=== PATIENT | female | born 1975 | race Caucasian/White ===

== ENCOUNTER 2020-12-09 13:50 | Inpatient (IN) ==
[2020-12-09] MEDS ORDERED: Aspirin 81 MG TAB.CHEW PO ONE (14:12)
[2020-12-09] MEDS ORDERED: 0.9 % Sodium Chloride 1,000 ML IVC SCH (14:15)
[2020-12-09 14:43] LABS: Basophils % 0.1 %; Eosinophils % 0.1 %; Hematocrit 25.8 % (35.3-44.9); Hemoglobin 8.1 g/dL (11.5-15.4); Immature Granulocytes % 0.4 % (0-4); Lymphocytes # 1.1 K/mcL (0.6-4.6); Lymphocytes % 13.7 %; Mean Corpuscular HGB Conc 31.4 g/dL (31.6-35.5); Mean Corpuscular Hemoglobin 29.3 pg (28.0-33.3); Mean Corpuscular Volume 93.5 fL (83.0-100.0); Monocytes # 0.8 K/mcL (0.0-1.3); Monocytes % 9.3 %; Neutrophils # 6.3 K/mcL (1.6-8.9); Platelet Count 215 K/mcL (140-400); Red Blood Count 2.76 M/mcL (3.82-4.97); Red Cell Distribution Width 15.9 % (11.5-14.5); Segmented Neutrophils % 76.4 %; White Blood Count 8.2 K/mcL (4.3-11.1)
[2020-12-09 14:52] LABS: INR 1.2; Prothrombin Time 13.9 Seconds (9.4-12.1)
[2020-12-09 14:55] LABS: Activated Partial Thrombo Time 37.4 Seconds (26.0-36.0)
[2020-12-09 14:59] LABS: BUN/Creatinine Ratio 25 (6-26); Blood Urea Nitrogen 62 mg/dL (6-20); Calcium 8.8 mg/dL (8.6-10.3); Carbon Dioxide 27 mEq/L (23-29); Chloride 100 mEq/L (98-107); Glucose 147 mg/dL (70-105); Osmolality,Calculated 306 (280-300); Potassium 4.6 mEq/L (3.5-5.1); Sodium 138 mEq/L (136-145); eGFR For African Americans 26 (> 60); eGFR For Non-African Americans 21 (> 60)
[2020-12-09 15:03] LABS: Troponin I < 0.03 ng/mL (< 0.04)
[2020-12-09] MEDS ORDERED: Acetaminophen 325 MG TABLET PO PRN (16:27)
[2020-12-09] MEDS ORDERED: Naloxone 0.4 MG/ML INJ IVP PRN (16:27)
[2020-12-09] MEDS ORDERED: Ondansetron 4 MG/2 ML VIAL IVP PRN (16:27)
[2020-12-09] MEDS ORDERED: Ipratropium/Albuterol Neb 3 ML IH PRN (16:30)
[2020-12-09] MEDS ORDERED: *HR* Dextrose 50 % in Water (Vial) 50 ML VIAL IVP PRN (16:31)
[2020-12-09] MEDS ORDERED: D5% in Water 1,000 ML IVC PRN (16:31)
[2020-12-09] MEDS ORDERED: Dextrose Gel 15 GM/37.5 ML TUBE PO PRN ×2 (16:31)
[2020-12-09] MEDS ORDERED: *HR* Rivaroxaban 15 MG TABLET PO SCH (17:04)
[2020-12-09] MEDS: Doxycycline 100 MG in 0.9 % Sodium Chloride Mini Bag 100 ML IVPB SCH (19:49)
[2020-12-09] MEDS: Furosemide 40 MG/4 ML VIAL IVP SCH (20:28)
[2020-12-09] MEDS: Fluticasone Propionate Nasal 50 MCG/SPRAY BOTTLE NS SCH (20:33)
[2020-12-09] MEDS: Insulin DETEMIR 100 UNIT/ML X5UNITS SUBQ SCH (20:34)
[2020-12-09] MEDS ORDERED: Apixaban 5 MG TABLET PO SCH (21:00)
[2020-12-09] MEDS ORDERED: Metoprolol 100 MG TABLET PO SCH (21:00)
[2020-12-09] MEDS ORDERED: Perflutren Lipid Microsphere 1.3 ML in 0.9 % Sodium Chloride 8.7 ML IVP PRN (21:05)
[2020-12-09 21:10] LABS: Estimated Average Glucose 128 mg/dl; Hemoglobin A1C 6.1 %
[2020-12-10 01:42] LABS: Hematocrit 22.1 % (35.3-44.9); Hemoglobin 6.8 g/dL (11.5-15.4)
[2020-12-10 01:43] LABS: Hematocrit 21.9 % (35.3-44.9); Hemoglobin 6.9 g/dL (11.5-15.4); Mean Corpuscular HGB Conc 31.5 g/dL (31.6-35.5); Mean Corpuscular Volume 95.2 fL (83.0-100.0); Mean Platelet Volume 11.2 fL (9.4-12.4); Platelet Count 186 K/mcL (140-400); White Blood Count 5.6 K/mcL (4.3-11.1)
[2020-12-10 02:03] LABS: Calcium 8.1 mg/dL (8.6-10.3); Chol/HDL Ratio 4.9 (0-4.9); Magnesium 1.2 mg/dL (1.6-2.6); Potassium 4.3 mEq/L (3.5-5.1)
[2020-12-10] MEDS ORDERED: 0.9 % Sodium Chloride 250 ML IVC SCH (02:15)
[2020-12-10] MEDS: Insulin LISPRO 300 UNITS/3 ML VIAL SUBQ SCH ×3 (08:30→17:46)
[2020-12-10] MEDS: Furosemide 40 MG/4 ML VIAL IVP SCH (08:31)
[2020-12-10] MEDS: Fluticasone Propionate Nasal 50 MCG/SPRAY BOTTLE NS SCH ×2 (08:37→22:33)
[2020-12-10] MEDS: Doxycycline 100 MG in 0.9 % Sodium Chloride Mini Bag 100 ML IVPB SCH (08:37)
[2020-12-10] MEDS: Insulin DETEMIR 100 UNIT/ML X5UNITS SUBQ SCH ×2 (08:38→22:50)
[2020-12-10 08:51] LABS: Hematocrit 24.8 % (35.3-44.9); Hemoglobin 7.9 g/dL (11.5-15.4); Mean Corpuscular HGB Conc 31.9 g/dL (31.6-35.5); Mean Corpuscular Hemoglobin 29.7 pg (28.0-33.3); Mean Corpuscular Volume 93.2 fL (83.0-100.0); Mean Platelet Volume 11.4 fL (9.4-12.4); Platelet Count 199 K/mcL (140-400); Red Blood Count 2.66 M/mcL (3.82-4.97); Red Cell Distribution Width 16.7 % (11.5-14.5); White Blood Count 5.7 K/mcL (4.3-11.1)
[2020-12-10] MEDS ORDERED: Aspirin Enteric Coated 81 MG Tablet PO SCH (09:00)
[2020-12-10] MEDS ORDERED: Cholecalciferol (D-3) 1,000 UNIT (25MCG) TABLET PO SCH (09:00)
[2020-12-10] MEDS ORDERED: ARIPiprazole 5 MG TABLET PO SCH (09:00)
[2020-12-10] MEDS ORDERED: 0.9 % Sodium Chloride 500 ML IVC ONE (10:02)
[2020-12-10] MEDS ORDERED: 0.9 % Sodium Chloride 1,000 ML IVC SCH (10:15)
[2020-12-10 15:57] VITALS: RESP 18
[2020-12-10 18:45] VITALS: O2SAT 100
[2020-12-10 19:33] LABS: Hematocrit 25.3 % (35.3-44.9); Hemoglobin 8.1 g/dL (11.5-15.4)
[2020-12-10] MEDS ORDERED: Doxycycline 100 MG in 0.9 % Sodium Chloride Mini Bag 100 ML IVPB SCH (21:00)
[2020-12-10 22:46] VITALS: PULSE 106; TEMP 98.3
[2020-12-10 22:48] VITALS: BP 87/56
[2020-12-24] MEDS ORDERED: ARIPIPRAZOLE 400 MG IM SCH (09:00)
== END 2020-12-10 23:25 | disposition short-term general hospital (02) | DRG 291 ==
LOC: EMEROOPIK 13:50 → INPPIK 18:38
PROVIDERS: ADMIT Family Medicine; ATTEND Family Medicine

== ENCOUNTER 2020-12-17 11:57 | Inpatient (IN) ==
[2020-12-18] MEDS ORDERED: Dextrose Gel 15 GM/37.5 ML TUBE PO PRN ×2 (14:20)
[2020-12-18] MEDS ORDERED: D5% in Water 1,000 ML IVC PRN (14:20)
[2020-12-18] MEDS ORDERED: *HR* Dextrose 50 % in Water (Vial) 50 ML VIAL IVP PRN (14:20)
[2020-12-18] MEDS: Doxycycline 100 MG CAPSULE PO SCH (16:51)
[2020-12-18] MEDS: *HR* Glimepiride 4 MG TABLET PO SCH (16:51)
[2020-12-18] MEDS: Insulin LISPRO 300 UNITS/3 ML VIAL SUBQ SCH ×2 (16:52→22:37)
[2020-12-18] MEDS: Latanoprost 2.5 ML BOTTLE BOTH EYES SCH (22:23)
[2020-12-18] MEDS: Fluticasone Propionate Nasal 50 MCG/SPRAY BOTTLE NS SCH (22:23)
[2020-12-18] MEDS: Divalproex (12 HR) 250 MG TABLET PO SCH (22:24)
[2020-12-19] MEDS: Doxycycline 100 MG CAPSULE PO SCH ×2 (06:26→16:18)
[2020-12-19 07:22] LABS: Basophils % 0.3 %; Eosinophils # 0.2 K/mcL (0.0-0.6); Eosinophils % 3.4 %; Hematocrit 29.5 % (35.3-44.9); Hemoglobin 9.6 g/dL (11.5-15.4); Immature Granulocytes % 0.4 % (0-4); Lymphocytes # 1.9 K/mcL (0.6-4.6); Lymphocytes % 27.3 %; Mean Corpuscular HGB Conc 32.5 g/dL (31.6-35.5); Mean Corpuscular Hemoglobin 29.6 pg (28.0-33.3); Mean Platelet Volume 10.4 fL (9.4-12.4); Monocytes # 0.7 K/mcL (0.0-1.3); Monocytes % 10.4 %; Neutrophils # 4.1 K/mcL (1.6-8.9); Platelet Count 249 K/mcL (140-400); Red Blood Count 3.24 M/mcL (3.82-4.97); Red Cell Distribution Width 14.5 % (11.5-14.5); Segmented Neutrophils % 58.2 %; White Blood Count 7.1 K/mcL (4.3-11.1)
[2020-12-19 07:39] LABS: Calcium 8.9 mg/dL (8.6-10.3); Potassium 3.6 mEq/L (3.5-5.1)
[2020-12-19] MEDS: Insulin DETEMIR 100 UNIT/ML X5UNITS SUBQ SCH (08:22)
[2020-12-19] MEDS: Divalproex (12 HR) 250 MG TABLET PO SCH ×2 (08:22→21:51)
[2020-12-19] MEDS: Furosemide 20 MG TABLET PO SCH (08:23)
[2020-12-19] MEDS: Cholecalciferol (D-3) 1,000 UNIT (25MCG) TABLET PO SCH (08:23)
[2020-12-19] MEDS: ARIPiprazole 5 MG TABLET PO SCH (08:23)
[2020-12-19] MEDS: *HR* Glimepiride 4 MG TABLET PO SCH ×2 (08:23→16:18)
[2020-12-19] MEDS: Insulin LISPRO 300 UNITS/3 ML VIAL SUBQ SCH ×4 (08:24→21:52)
[2020-12-19] MEDS: *HR* SitaGLIPtin 100 MG TABLET PO SCH (08:24)
[2020-12-19] MEDS: Fluticasone Propionate Nasal 50 MCG/SPRAY BOTTLE NS SCH ×2 (08:34→21:51)
[2020-12-19] MEDS: Latanoprost 2.5 ML BOTTLE BOTH EYES SCH (21:51)
[2020-12-20] MEDS: Doxycycline 100 MG CAPSULE PO SCH ×2 (06:51→17:01)
[2020-12-20] MEDS: Insulin DETEMIR 100 UNIT/ML X5UNITS SUBQ SCH (09:42)
[2020-12-20] MEDS: Furosemide 20 MG TABLET PO SCH (09:43)
[2020-12-20] MEDS: *HR* Glimepiride 4 MG TABLET PO SCH ×2 (09:43→17:01)
[2020-12-20] MEDS: *HR* SitaGLIPtin 100 MG TABLET PO SCH (09:43)
[2020-12-20] MEDS: ARIPiprazole 5 MG TABLET PO SCH (09:43)
[2020-12-20] MEDS: Cholecalciferol (D-3) 1,000 UNIT (25MCG) TABLET PO SCH (09:43)
[2020-12-20] MEDS: Divalproex (12 HR) 250 MG TABLET PO SCH ×2 (09:43→22:44)
[2020-12-20] MEDS: Fluticasone Propionate Nasal 50 MCG/SPRAY BOTTLE NS SCH ×2 (09:47→22:50)
[2020-12-20] MEDS: Insulin LISPRO 300 UNITS/3 ML VIAL SUBQ SCH ×4 (09:48→22:51)
[2020-12-20] MEDS: Latanoprost 2.5 ML BOTTLE BOTH EYES SCH (22:50)
[2020-12-21] MEDS: Insulin DETEMIR 100 UNIT/ML X5UNITS SUBQ SCH (08:32)
[2020-12-21] MEDS: Insulin LISPRO 300 UNITS/3 ML VIAL SUBQ SCH ×4 (08:32→22:19)
[2020-12-21] MEDS: ARIPiprazole 5 MG TABLET PO SCH (08:33)
[2020-12-21] MEDS: Furosemide 20 MG TABLET PO SCH (08:33)
[2020-12-21] MEDS: Divalproex (12 HR) 250 MG TABLET PO SCH ×2 (08:33→22:19)
[2020-12-21] MEDS: *HR* Glimepiride 4 MG TABLET PO SCH ×2 (08:33→17:49)
[2020-12-21] MEDS: Cholecalciferol (D-3) 1,000 UNIT (25MCG) TABLET PO SCH (08:33)
[2020-12-21] MEDS: Fluticasone Propionate Nasal 50 MCG/SPRAY BOTTLE NS SCH ×2 (08:33→22:24)
[2020-12-21] MEDS: *HR* SitaGLIPtin 100 MG TABLET PO SCH (08:33)
[2020-12-21] MEDS: Latanoprost 2.5 ML BOTTLE BOTH EYES SCH (22:24)
[2020-12-22] MEDS: *HR* SitaGLIPtin 100 MG TABLET PO SCH (08:37)
[2020-12-22] MEDS: Insulin LISPRO 300 UNITS/3 ML VIAL SUBQ SCH ×4 (08:37→21:04)
[2020-12-22] MEDS: ARIPiprazole 5 MG TABLET PO SCH (08:37)
[2020-12-22] MEDS: Cholecalciferol (D-3) 1,000 UNIT (25MCG) TABLET PO SCH (08:38)
[2020-12-22] MEDS: Divalproex (12 HR) 250 MG TABLET PO SCH ×2 (08:38→21:03)
[2020-12-22] MEDS: Fluticasone Propionate Nasal 50 MCG/SPRAY BOTTLE NS SCH ×2 (08:38→21:03)
[2020-12-22] MEDS: *HR* Glimepiride 4 MG TABLET PO SCH ×2 (08:38→17:08)
[2020-12-22] MEDS: Furosemide 20 MG TABLET PO SCH (08:38)
[2020-12-22] MEDS: Insulin DETEMIR 100 UNIT/ML X5UNITS SUBQ SCH (08:39)
[2020-12-22] MEDS: Latanoprost 2.5 ML BOTTLE BOTH EYES SCH (21:03)
[2020-12-23] MEDS: *HR* Glimepiride 4 MG TABLET PO SCH ×2 (08:21→17:03)
[2020-12-23] MEDS: *HR* SitaGLIPtin 100 MG TABLET PO SCH (08:22)
[2020-12-23] MEDS: Cholecalciferol (D-3) 1,000 UNIT (25MCG) TABLET PO SCH (08:22)
[2020-12-23] MEDS: ARIPiprazole 5 MG TABLET PO SCH (08:23)
[2020-12-23] MEDS: Divalproex (12 HR) 250 MG TABLET PO SCH ×2 (08:23→20:08)
[2020-12-23] MEDS: Furosemide 20 MG TABLET PO SCH (08:24)
[2020-12-23] MEDS: Fluticasone Propionate Nasal 50 MCG/SPRAY BOTTLE NS SCH ×2 (08:37→20:09)
[2020-12-23] MEDS: Insulin LISPRO 300 UNITS/3 ML VIAL SUBQ SCH ×4 (08:38→20:09)
[2020-12-23] MEDS: Insulin DETEMIR 100 UNIT/ML X5UNITS SUBQ SCH (09:44)
[2020-12-23] MEDS: Sennosides/Docusate Sodium TABLET PO SCH ×2 (11:32→20:09)
[2020-12-23] MEDS: Latanoprost 2.5 ML BOTTLE BOTH EYES SCH (20:09)
[2020-12-24] MEDS: *HR* SitaGLIPtin 100 MG TABLET PO SCH (08:37)
[2020-12-24] MEDS: Fluticasone Propionate Nasal 50 MCG/SPRAY BOTTLE NS SCH ×2 (08:37→21:04)
[2020-12-24] MEDS: Divalproex (12 HR) 250 MG TABLET PO SCH ×2 (08:37→20:58)
[2020-12-24] MEDS: Sennosides/Docusate Sodium TABLET PO SCH ×2 (08:38→20:57)
[2020-12-24] MEDS: Cholecalciferol (D-3) 1,000 UNIT (25MCG) TABLET PO SCH (08:38)
[2020-12-24] MEDS: *HR* Glimepiride 4 MG TABLET PO SCH ×2 (08:38→16:52)
[2020-12-24] MEDS: Furosemide 20 MG TABLET PO SCH (08:38)
[2020-12-24] MEDS: ARIPiprazole 5 MG TABLET PO SCH (08:39)
[2020-12-24] MEDS: Insulin LISPRO 300 UNITS/3 ML VIAL SUBQ SCH ×4 (08:42→20:58)
[2020-12-24] MEDS: Insulin DETEMIR 100 UNIT/ML X5UNITS SUBQ SCH (08:44)
[2020-12-24] MEDS: Latanoprost 2.5 ML BOTTLE BOTH EYES SCH (20:58)
[2020-12-25] MEDS: ARIPiprazole 5 MG TABLET PO SCH (07:57)
[2020-12-25] MEDS: *HR* Glimepiride 4 MG TABLET PO SCH ×2 (07:57→15:52)
[2020-12-25] MEDS: Cholecalciferol (D-3) 1,000 UNIT (25MCG) TABLET PO SCH (07:57)
[2020-12-25] MEDS: Furosemide 20 MG TABLET PO SCH (07:57)
[2020-12-25] MEDS: Divalproex (12 HR) 250 MG TABLET PO SCH ×2 (07:57→21:10)
[2020-12-25] MEDS: Fluticasone Propionate Nasal 50 MCG/SPRAY BOTTLE NS SCH ×2 (07:57→21:11)
[2020-12-25] MEDS: Sennosides/Docusate Sodium TABLET PO SCH ×2 (07:58→21:10)
[2020-12-25] MEDS: *HR* SitaGLIPtin 100 MG TABLET PO SCH (07:58)
[2020-12-25] MEDS: Insulin LISPRO 300 UNITS/3 ML VIAL SUBQ SCH ×4 (07:59→21:11)
[2020-12-25] MEDS: Insulin DETEMIR 100 UNIT/ML X5UNITS SUBQ SCH (09:25)
[2020-12-25] MEDS: Latanoprost 2.5 ML BOTTLE BOTH EYES SCH (21:10)
[2020-12-26] MEDS: Insulin LISPRO 300 UNITS/3 ML VIAL SUBQ SCH ×4 (07:24→20:50)
[2020-12-26] MEDS: Sennosides/Docusate Sodium TABLET PO SCH ×2 (07:29→20:48)
[2020-12-26] MEDS: Cholecalciferol (D-3) 1,000 UNIT (25MCG) TABLET PO SCH (07:35)
[2020-12-26] MEDS: Furosemide 20 MG TABLET PO SCH (07:35)
[2020-12-26] MEDS: ARIPiprazole 5 MG TABLET PO SCH (07:35)
[2020-12-26] MEDS: *HR* SitaGLIPtin 100 MG TABLET PO SCH (07:35)
[2020-12-26] MEDS: *HR* Glimepiride 4 MG TABLET PO SCH ×2 (07:36→16:33)
[2020-12-26] MEDS: Divalproex (12 HR) 250 MG TABLET PO SCH ×2 (07:36→20:47)
[2020-12-26] MEDS: Fluticasone Propionate Nasal 50 MCG/SPRAY BOTTLE NS SCH ×2 (07:42→20:49)
[2020-12-26] MEDS: Insulin DETEMIR 100 UNIT/ML X5UNITS SUBQ SCH (09:21)
[2020-12-26] MEDS: Latanoprost 2.5 ML BOTTLE BOTH EYES SCH (20:49)
[2020-12-27] MEDS: Insulin LISPRO 300 UNITS/3 ML VIAL SUBQ SCH ×4 (07:28→20:39)
[2020-12-27] MEDS: ARIPiprazole 5 MG TABLET PO SCH (07:47)
[2020-12-27] MEDS: *HR* Glimepiride 4 MG TABLET PO SCH ×2 (07:47→18:46)
[2020-12-27] MEDS: Sennosides/Docusate Sodium TABLET PO SCH ×2 (07:47→20:51)
[2020-12-27] MEDS: *HR* SitaGLIPtin 100 MG TABLET PO SCH (07:48)
[2020-12-27] MEDS: Cholecalciferol (D-3) 1,000 UNIT (25MCG) TABLET PO SCH (07:48)
[2020-12-27] MEDS: Divalproex (12 HR) 250 MG TABLET PO SCH ×2 (07:48→20:48)
[2020-12-27] MEDS: Furosemide 20 MG TABLET PO SCH (07:48)
[2020-12-27] MEDS: Fluticasone Propionate Nasal 50 MCG/SPRAY BOTTLE NS SCH ×2 (07:50→20:50)
[2020-12-27] MEDS: Insulin DETEMIR 100 UNIT/ML X5UNITS SUBQ SCH (08:08)
[2020-12-27] MEDS: Latanoprost 2.5 ML BOTTLE BOTH EYES SCH (20:54)
[2020-12-28] MEDS: Cholecalciferol (D-3) 1,000 UNIT (25MCG) TABLET PO SCH (07:53)
[2020-12-28] MEDS: Divalproex (12 HR) 250 MG TABLET PO SCH ×2 (07:53→20:33)
[2020-12-28] MEDS: ARIPiprazole 5 MG TABLET PO SCH (07:53)
[2020-12-28] MEDS: *HR* SitaGLIPtin 100 MG TABLET PO SCH (07:53)
[2020-12-28] MEDS: Sennosides/Docusate Sodium TABLET PO SCH ×2 (07:53→20:37)
[2020-12-28] MEDS: Fluticasone Propionate Nasal 50 MCG/SPRAY BOTTLE NS SCH ×2 (07:54→20:34)
[2020-12-28] MEDS: Insulin LISPRO 300 UNITS/3 ML VIAL SUBQ SCH ×4 (07:54→20:38)
[2020-12-28] MEDS: *HR* Glimepiride 4 MG TABLET PO SCH ×2 (07:54→17:26)
[2020-12-28] MEDS: Furosemide 20 MG TABLET PO SCH (07:54)
[2020-12-28] MEDS: Insulin DETEMIR 100 UNIT/ML X5UNITS SUBQ SCH (08:38)
[2020-12-28] MEDS: Latanoprost 2.5 ML BOTTLE BOTH EYES SCH (20:36)
[2020-12-29] MEDS: Furosemide 20 MG TABLET PO SCH (08:01)
[2020-12-29] MEDS: ARIPiprazole 5 MG TABLET PO SCH (08:01)
[2020-12-29] MEDS: *HR* Glimepiride 4 MG TABLET PO SCH ×2 (08:01→16:39)
[2020-12-29] MEDS: Cholecalciferol (D-3) 1,000 UNIT (25MCG) TABLET PO SCH (08:01)
[2020-12-29] MEDS: Fluticasone Propionate Nasal 50 MCG/SPRAY BOTTLE NS SCH ×2 (08:01→19:52)
[2020-12-29] MEDS: Insulin LISPRO 300 UNITS/3 ML VIAL SUBQ SCH ×4 (08:02→19:52)
[2020-12-29] MEDS: *HR* SitaGLIPtin 100 MG TABLET PO SCH (08:02)
[2020-12-29] MEDS: Sennosides/Docusate Sodium TABLET PO SCH ×2 (08:02→19:48)
[2020-12-29] MEDS: Divalproex (12 HR) 250 MG TABLET PO SCH ×2 (08:02→19:48)
[2020-12-29] MEDS: Insulin DETEMIR 100 UNIT/ML X5UNITS SUBQ SCH (08:23)
[2020-12-29] MEDS: Latanoprost 2.5 ML BOTTLE BOTH EYES SCH (19:47)
[2020-12-30 09:07] LABS: Basophils % 0.3 %; Eosinophils # 0.2 K/mcL (0.0-0.6); Hematocrit 28.1 % (35.3-44.9); Hemoglobin 8.8 g/dL (11.5-15.4); Immature Granulocytes % 0.6 % (0-4); Lymphocytes # 1.8 K/mcL (0.6-4.6); Lymphocytes % 26.4 %; Mean Corpuscular HGB Conc 31.3 g/dL (31.6-35.5); Mean Corpuscular Volume 92.7 fL (83.0-100.0); Monocytes # 0.8 K/mcL (0.0-1.3); Monocytes % 11.1 %; Nucleated Red Blood Cells 0.3 /100 WBC (0); Platelet Count 268 K/mcL (140-400); Red Blood Count 3.03 M/mcL (3.82-4.97); Segmented Neutrophils % 58.6 %; White Blood Count 6.7 K/mcL (4.3-11.1)
[2020-12-30 09:37] LABS: BUN/Creatinine Ratio 15 (6-26); Blood Urea Nitrogen 17 mg/dL (6-20); Carbon Dioxide 30 mEq/L (23-29); Chloride 105 mEq/L (98-107); Glucose 95 mg/dL (70-105); Osmolality,Calculated 299 (280-300); Potassium 3.7 mEq/L (3.5-5.1); Sodium 144 mEq/L (136-145); eGFR For African Americans > 60 (> 60); eGFR For Non-African Americans 51 (> 60)
[2020-12-30] MEDS: Cholecalciferol (D-3) 1,000 UNIT (25MCG) TABLET PO SCH (10:18)
[2020-12-30] MEDS: ARIPiprazole 5 MG TABLET PO SCH (10:18)
[2020-12-30] MEDS: Furosemide 20 MG TABLET PO SCH (10:18)
[2020-12-30] MEDS: Sennosides/Docusate Sodium TABLET PO SCH ×2 (10:20→21:53)
[2020-12-30] MEDS: Divalproex (12 HR) 250 MG TABLET PO SCH ×2 (10:20→21:53)
[2020-12-30] MEDS: *HR* Glimepiride 4 MG TABLET PO SCH ×2 (10:20→16:07)
[2020-12-30] MEDS: Insulin DETEMIR 100 UNIT/ML X5UNITS SUBQ SCH (10:21)
[2020-12-30] MEDS: Insulin LISPRO 300 UNITS/3 ML VIAL SUBQ SCH ×4 (10:21→21:58)
[2020-12-30] MEDS: Fluticasone Propionate Nasal 50 MCG/SPRAY BOTTLE NS SCH ×2 (10:23→22:04)
[2020-12-30] MEDS: *HR* SitaGLIPtin 100 MG TABLET PO SCH (10:24)
[2020-12-30] MEDS: Latanoprost 2.5 ML BOTTLE BOTH EYES SCH (21:59)
[2020-12-31] MEDS: ARIPiprazole 5 MG TABLET PO SCH (08:01)
[2020-12-31] MEDS: *HR* Glimepiride 4 MG TABLET PO SCH ×2 (08:01→16:41)
[2020-12-31] MEDS: Divalproex (12 HR) 250 MG TABLET PO SCH ×2 (08:01→20:44)
[2020-12-31] MEDS: *HR* SitaGLIPtin 100 MG TABLET PO SCH (08:01)
[2020-12-31] MEDS: Furosemide 20 MG TABLET PO SCH (08:01)
[2020-12-31] MEDS: Sennosides/Docusate Sodium TABLET PO SCH ×2 (08:02→20:44)
[2020-12-31] MEDS: Cholecalciferol (D-3) 1,000 UNIT (25MCG) TABLET PO SCH (08:03)
[2020-12-31] MEDS: Fluticasone Propionate Nasal 50 MCG/SPRAY BOTTLE NS SCH ×2 (08:03→20:52)
[2020-12-31] MEDS: Insulin DETEMIR 100 UNIT/ML X5UNITS SUBQ SCH (08:08)
[2020-12-31] MEDS: Insulin LISPRO 300 UNITS/3 ML VIAL SUBQ SCH ×4 (08:11→22:22)
[2020-12-31] MEDS: Latanoprost 2.5 ML BOTTLE BOTH EYES SCH (20:53)
[2021-01-01] MEDS: Divalproex (12 HR) 250 MG TABLET PO SCH ×2 (08:49→21:39)
[2021-01-01] MEDS: Cholecalciferol (D-3) 1,000 UNIT (25MCG) TABLET PO SCH (08:49)
[2021-01-01] MEDS: *HR* Glimepiride 4 MG TABLET PO SCH ×2 (08:49→16:39)
[2021-01-01] MEDS: ARIPiprazole 5 MG TABLET PO SCH (08:50)
[2021-01-01] MEDS: Sennosides/Docusate Sodium TABLET PO SCH ×2 (08:50→21:39)
[2021-01-01] MEDS: Furosemide 20 MG TABLET PO SCH (08:50)
[2021-01-01] MEDS: Fluticasone Propionate Nasal 50 MCG/SPRAY BOTTLE NS SCH ×2 (08:50→21:40)
[2021-01-01] MEDS: *HR* SitaGLIPtin 100 MG TABLET PO SCH (08:50)
[2021-01-01] MEDS: Insulin LISPRO 300 UNITS/3 ML VIAL SUBQ SCH ×4 (08:56→21:41)
[2021-01-01] MEDS: Insulin DETEMIR 100 UNIT/ML X5UNITS SUBQ SCH (09:03)
[2021-01-01] MEDS: Latanoprost 2.5 ML BOTTLE BOTH EYES SCH (21:40)
[2021-01-02] MEDS: *HR* SitaGLIPtin 100 MG TABLET PO SCH (09:13)
[2021-01-02] MEDS: Fluticasone Propionate Nasal 50 MCG/SPRAY BOTTLE NS SCH ×2 (09:13→21:35)
[2021-01-02] MEDS: Divalproex (12 HR) 250 MG TABLET PO SCH ×2 (09:14→21:33)
[2021-01-02] MEDS: Cholecalciferol (D-3) 1,000 UNIT (25MCG) TABLET PO SCH (09:14)
[2021-01-02] MEDS: Furosemide 20 MG TABLET PO SCH (09:14)
[2021-01-02] MEDS: ARIPiprazole 5 MG TABLET PO SCH (09:14)
[2021-01-02] MEDS: *HR* Glimepiride 4 MG TABLET PO SCH ×2 (09:14→15:58)
[2021-01-02] MEDS: Sennosides/Docusate Sodium TABLET PO SCH ×2 (09:14→21:34)
[2021-01-02] MEDS: Insulin LISPRO 300 UNITS/3 ML VIAL SUBQ SCH ×4 (09:15→21:25)
[2021-01-02] MEDS: Insulin DETEMIR 100 UNIT/ML X5UNITS SUBQ SCH (09:16)
[2021-01-02] MEDS: Latanoprost 2.5 ML BOTTLE BOTH EYES SCH (21:35)
[2021-01-03 06:24] LABS: Basophils % 0.3 %; Eosinophils # 0.1 K/mcL (0.0-0.6); Eosinophils % 1.6 %; Immature Granulocytes % 0.7 % (0-4); Lymphocytes # 1.6 K/mcL (0.6-4.6); Lymphocytes % 22.4 %; Mean Corpuscular HGB Conc 30.3 g/dL (31.6-35.5); Mean Corpuscular Hemoglobin 29.2 pg (28.0-33.3); Mean Corpuscular Volume 96.2 fL (83.0-100.0); Mean Platelet Volume 10.2 fL (9.4-12.4); Monocytes # 0.9 K/mcL (0.0-1.3); Monocytes % 12.9 %; Neutrophils # 4.3 K/mcL (1.6-8.9); Nucleated Red Blood Cells 0.4 /100 WBC (0); Platelet Count 290 K/mcL (140-400); Red Blood Count 3.43 M/mcL (3.82-4.97); Red Cell Distribution Width 15.6 % (11.5-14.5); Segmented Neutrophils % 62.1 %
[2021-01-03] MEDS: Insulin LISPRO 300 UNITS/3 ML VIAL SUBQ SCH ×4 (08:08→19:36)
[2021-01-03] MEDS: Divalproex (12 HR) 250 MG TABLET PO SCH ×2 (08:15→19:30)
[2021-01-03] MEDS: *HR* Glimepiride 4 MG TABLET PO SCH ×2 (08:16→16:08)
[2021-01-03] MEDS: Cholecalciferol (D-3) 1,000 UNIT (25MCG) TABLET PO SCH (08:16)
[2021-01-03] MEDS: Sennosides/Docusate Sodium TABLET PO SCH ×2 (08:16→19:30)
[2021-01-03] MEDS: *HR* SitaGLIPtin 100 MG TABLET PO SCH (08:16)
[2021-01-03] MEDS: ARIPiprazole 5 MG TABLET PO SCH (08:16)
[2021-01-03] MEDS: Furosemide 20 MG TABLET PO SCH (08:16)
[2021-01-03] MEDS: Fluticasone Propionate Nasal 50 MCG/SPRAY BOTTLE NS SCH ×2 (08:17→19:32)
[2021-01-03] MEDS: Insulin DETEMIR 100 UNIT/ML X5UNITS SUBQ SCH (08:40)
[2021-01-03] MEDS: Latanoprost 2.5 ML BOTTLE BOTH EYES SCH (19:31)
[2021-01-04] MEDS: *HR* Glimepiride 4 MG TABLET PO SCH ×2 (07:47→16:12)
[2021-01-04] MEDS: Divalproex (12 HR) 250 MG TABLET PO SCH ×2 (07:47→21:08)
[2021-01-04] MEDS: ARIPiprazole 5 MG TABLET PO SCH (07:48)
[2021-01-04] MEDS: *HR* SitaGLIPtin 100 MG TABLET PO SCH (07:48)
[2021-01-04] MEDS: Cholecalciferol (D-3) 1,000 UNIT (25MCG) TABLET PO SCH (07:48)
[2021-01-04] MEDS: Furosemide 20 MG TABLET PO SCH (07:48)
[2021-01-04] MEDS: Sennosides/Docusate Sodium TABLET PO SCH ×2 (07:48→21:08)
[2021-01-04] MEDS: Fluticasone Propionate Nasal 50 MCG/SPRAY BOTTLE NS SCH ×2 (07:49→21:14)
[2021-01-04] MEDS: Insulin LISPRO 300 UNITS/3 ML VIAL SUBQ SCH ×4 (07:49→21:55)
[2021-01-04] MEDS: Insulin DETEMIR 100 UNIT/ML X5UNITS SUBQ SCH (09:58)
[2021-01-04] MEDS: Latanoprost 2.5 ML BOTTLE BOTH EYES SCH (21:14)
[2021-01-04 23:23] VITALS: RESP 18
[2021-01-05 07:36] VITALS: BP 111/66; PULSE 88; TEMP 98.7; O2SAT 93
[2021-01-05] MEDS: Insulin LISPRO 300 UNITS/3 ML VIAL SUBQ SCH ×2 (08:31→11:47)
[2021-01-05] MEDS: Furosemide 20 MG TABLET PO SCH (08:33)
[2021-01-05] MEDS: Divalproex (12 HR) 250 MG TABLET PO SCH (08:33)
[2021-01-05] MEDS: ARIPiprazole 5 MG TABLET PO SCH (08:33)
[2021-01-05] MEDS: Sennosides/Docusate Sodium TABLET PO SCH (08:33)
[2021-01-05] MEDS: Cholecalciferol (D-3) 1,000 UNIT (25MCG) TABLET PO SCH (08:34)
[2021-01-05] MEDS: *HR* SitaGLIPtin 100 MG TABLET PO SCH (08:34)
[2021-01-05] MEDS: *HR* Glimepiride 4 MG TABLET PO SCH (08:34)
[2021-01-05] MEDS: Insulin DETEMIR 100 UNIT/ML X5UNITS SUBQ SCH (08:38)
[2021-01-05] MEDS: Fluticasone Propionate Nasal 50 MCG/SPRAY BOTTLE NS SCH (08:41)
== END 2021-01-05 13:30 | disposition home health service (06) | DRG 945 ==
LOC: INPPIK 12-18 13:50
PROVIDERS: ADMIT Family Medicine; ATTEND Family Medicine

== ENCOUNTER 2021-01-17 18:48 | Inpatient (IN) ==
[2021-01-19] MEDS ORDERED: *HR* Dextrose 50 % in Water (Syg) 50 ML SYRINGE IVP PRN ×2 (00:30→17:33)
[2021-01-19] MEDS ORDERED: D5% in Water 1,000 ML IVC PRN ×2 (00:30→17:33)
[2021-01-19] MEDS ORDERED: Dextrose Gel 15 GM/37.5 ML TUBE PO PRN ×4 (00:30→17:33)
[2021-01-19] MEDS: (Dulaglutide [Trulicity] 0.75 MG/0.5 ML Pen.Injctr) SQ SCH (01:01)
[2021-01-19] MEDS ORDERED: Insulin DETEMIR 100 UNIT/ML per UNIT SUBQ SCH (09:00)
[2021-01-19] MEDS: ARIPiprazole 5 MG TABLET PO SCH (10:37)
[2021-01-19] MEDS: Furosemide 20 MG TABLET PO SCH (10:38)
[2021-01-19] MEDS: Cholecalciferol (D-3) 1,000 UNIT (25MCG) TABLET PO SCH (10:38)
[2021-01-19] MEDS: *HR* SitaGLIPtin 100 MG TABLET PO SCH (10:38)
[2021-01-19] MEDS: *HR* Pioglitazone 45 MG TABLET PO SCH (10:38)
[2021-01-19] MEDS: Divalproex (12 HR) 250 MG TABLET PO SCH ×2 (10:38→20:39)
[2021-01-19] MEDS: *HR* Glimepiride 4 MG TABLET PO SCH ×2 (10:39→20:38)
[2021-01-19] MEDS: Fluticasone Propionate Nasal 50 MCG/SPRAY BOTTLE NS SCH ×2 (10:46→20:39)
[2021-01-19] MEDS: Insulin LISPRO 300 UNITS/3 ML VIAL SUBQ SCH ×2 (17:56→21:22)
[2021-01-19] MEDS: Latanoprost 2.5 ML BOTTLE BOTH EYES SCH (20:39)
[2021-01-20] MEDS: ARIPiprazole 5 MG TABLET PO SCH (08:34)
[2021-01-20] MEDS: Cholecalciferol (D-3) 1,000 UNIT (25MCG) TABLET PO SCH (08:34)
[2021-01-20] MEDS: *HR* Pioglitazone 45 MG TABLET PO SCH (08:34)
[2021-01-20] MEDS: Divalproex (12 HR) 250 MG TABLET PO SCH ×2 (08:34→21:01)
[2021-01-20] MEDS: *HR* Glimepiride 4 MG TABLET PO SCH ×2 (08:34→21:01)
[2021-01-20] MEDS: *HR* SitaGLIPtin 100 MG TABLET PO SCH (08:34)
[2021-01-20] MEDS: Furosemide 20 MG TABLET PO SCH (08:34)
[2021-01-20] MEDS: Insulin DETEMIR 100 UNIT/ML X5UNITS SUBQ SCH (08:36)
[2021-01-20] MEDS: Fluticasone Propionate Nasal 50 MCG/SPRAY BOTTLE NS SCH ×2 (08:36→21:02)
[2021-01-20] MEDS: Insulin LISPRO 300 UNITS/3 ML VIAL SUBQ SCH ×4 (08:37→21:45)
[2021-01-20] MEDS: Latanoprost 2.5 ML BOTTLE BOTH EYES SCH (21:01)
[2021-01-21 07:42] LABS: Hematocrit 26.6 % (35.3-44.9); Hemoglobin 8.3 g/dL (11.5-15.4); Mean Corpuscular HGB Conc 31.2 g/dL (31.6-35.5); Mean Corpuscular Hemoglobin 30.1 pg (28.0-33.3); Mean Corpuscular Volume 96.4 fL (83.0-100.0); Platelet Count 300 K/mcL (140-400); Red Blood Count 2.76 M/mcL (3.82-4.97); White Blood Count 7.6 K/mcL (4.3-11.1)
[2021-01-21 07:59] LABS: Calcium 8.5 mg/dL (8.6-10.3); Potassium 3.2 mEq/L (3.5-5.1)
[2021-01-21] MEDS: Fluticasone Propionate Nasal 50 MCG/SPRAY BOTTLE NS SCH ×2 (08:05→20:45)
[2021-01-21] MEDS: Furosemide 20 MG TABLET PO SCH (08:06)
[2021-01-21] MEDS: *HR* SitaGLIPtin 100 MG TABLET PO SCH (08:06)
[2021-01-21] MEDS: ARIPiprazole 5 MG TABLET PO SCH (08:06)
[2021-01-21] MEDS: Divalproex (12 HR) 250 MG TABLET PO SCH ×2 (08:06→20:42)
[2021-01-21] MEDS: Cholecalciferol (D-3) 1,000 UNIT (25MCG) TABLET PO SCH (08:06)
[2021-01-21] MEDS: *HR* Glimepiride 4 MG TABLET PO SCH ×2 (08:06→20:42)
[2021-01-21] MEDS: *HR* Pioglitazone 45 MG TABLET PO SCH (08:06)
[2021-01-21] MEDS: Insulin LISPRO 300 UNITS/3 ML VIAL SUBQ SCH ×4 (08:07→20:46)
[2021-01-21] MEDS: Insulin DETEMIR 100 UNIT/ML X5UNITS SUBQ SCH (09:12)
[2021-01-21] MEDS: Metoprolol XL (24 HR) Succ 50 MG TAB.ER.24H PO SCH (20:41)
[2021-01-21] MEDS: Latanoprost 2.5 ML BOTTLE BOTH EYES SCH (20:46)
[2021-01-22] MEDS: Cholecalciferol (D-3) 1,000 UNIT (25MCG) TABLET PO SCH (08:23)
[2021-01-22] MEDS: Furosemide 20 MG TABLET PO SCH (08:23)
[2021-01-22] MEDS: *HR* Pioglitazone 45 MG TABLET PO SCH (08:23)
[2021-01-22] MEDS: ARIPiprazole 5 MG TABLET PO SCH (08:24)
[2021-01-22] MEDS: Metoprolol XL (24 HR) Succ 50 MG TAB.ER.24H PO SCH ×2 (08:24→21:17)
[2021-01-22] MEDS: *HR* Glimepiride 4 MG TABLET PO SCH ×2 (08:24→21:18)
[2021-01-22] MEDS: *HR* SitaGLIPtin 100 MG TABLET PO SCH (08:24)
[2021-01-22] MEDS: Divalproex (12 HR) 250 MG TABLET PO SCH ×2 (08:24→21:16)
[2021-01-22] MEDS: Fluticasone Propionate Nasal 50 MCG/SPRAY BOTTLE NS SCH ×2 (08:32→21:20)
[2021-01-22] MEDS: Insulin DETEMIR 100 UNIT/ML X5UNITS SUBQ SCH (09:09)
[2021-01-22] MEDS: Insulin LISPRO 300 UNITS/3 ML VIAL SUBQ SCH ×3 (12:14→21:24)
[2021-01-22] MEDS: Latanoprost 2.5 ML BOTTLE BOTH EYES SCH (21:22)
[2021-01-23 07:54] LABS: Hematocrit 26.7 % (35.3-44.9); Hemoglobin 8.4 g/dL (11.5-15.4); Mean Corpuscular HGB Conc 31.5 g/dL (31.6-35.5); Mean Corpuscular Hemoglobin 30.7 pg (28.0-33.3); Mean Corpuscular Volume 97.4 fL (83.0-100.0); Mean Platelet Volume 10.2 fL (9.4-12.4); Platelet Count 280 K/mcL (140-400); Red Blood Count 2.74 M/mcL (3.82-4.97); Red Cell Distribution Width 16.2 % (11.5-14.5); White Blood Count 6.8 K/mcL (4.3-11.1)
[2021-01-23] MEDS: Fluticasone Propionate Nasal 50 MCG/SPRAY BOTTLE NS SCH ×2 (08:32→21:36)
[2021-01-23] MEDS: *HR* Pioglitazone 45 MG TABLET PO SCH (08:33)
[2021-01-23] MEDS: Divalproex (12 HR) 250 MG TABLET PO SCH ×2 (08:33→21:33)
[2021-01-23] MEDS: *HR* SitaGLIPtin 100 MG TABLET PO SCH (08:33)
[2021-01-23] MEDS: Metoprolol XL (24 HR) Succ 50 MG TAB.ER.24H PO SCH ×2 (08:33→21:33)
[2021-01-23] MEDS: Cholecalciferol (D-3) 1,000 UNIT (25MCG) TABLET PO SCH (08:33)
[2021-01-23] MEDS: ARIPiprazole 5 MG TABLET PO SCH (08:33)
[2021-01-23] MEDS: *HR* Glimepiride 4 MG TABLET PO SCH ×2 (08:33→21:32)
[2021-01-23] MEDS: Furosemide 20 MG TABLET PO SCH (08:33)
[2021-01-23] MEDS: Insulin DETEMIR 100 UNIT/ML X5UNITS SUBQ SCH (08:34)
[2021-01-23] MEDS: Insulin LISPRO 300 UNITS/3 ML VIAL SUBQ SCH ×4 (08:34→21:37)
[2021-01-23] MEDS: Latanoprost 2.5 ML BOTTLE BOTH EYES SCH (21:37)
[2021-01-24] MEDS: *HR* Glimepiride 4 MG TABLET PO SCH ×2 (08:46→20:16)
[2021-01-24] MEDS: ARIPiprazole 5 MG TABLET PO SCH (08:46)
[2021-01-24] MEDS: Metoprolol XL (24 HR) Succ 50 MG TAB.ER.24H PO SCH ×2 (08:46→20:16)
[2021-01-24] MEDS: Divalproex (12 HR) 250 MG TABLET PO SCH ×2 (08:47→20:14)
[2021-01-24] MEDS: *HR* SitaGLIPtin 100 MG TABLET PO SCH (08:47)
[2021-01-24] MEDS: Cholecalciferol (D-3) 1,000 UNIT (25MCG) TABLET PO SCH (08:47)
[2021-01-24] MEDS: Furosemide 20 MG TABLET PO SCH (08:47)
[2021-01-24] MEDS: Insulin DETEMIR 100 UNIT/ML X5UNITS SUBQ SCH (08:48)
[2021-01-24] MEDS: Fluticasone Propionate Nasal 50 MCG/SPRAY BOTTLE NS SCH ×2 (08:54→20:19)
[2021-01-24] MEDS: Insulin LISPRO 300 UNITS/3 ML VIAL SUBQ SCH ×4 (08:54→20:34)
[2021-01-24] MEDS: *HR* Pioglitazone 45 MG TABLET PO SCH (08:55)
[2021-01-24] MEDS: Latanoprost 2.5 ML BOTTLE BOTH EYES SCH (20:19)
[2021-01-25] MEDS: Insulin LISPRO 300 UNITS/3 ML VIAL SUBQ SCH ×5 (07:17→20:26)
[2021-01-25] MEDS: ARIPiprazole 5 MG TABLET PO SCH (07:55)
[2021-01-25] MEDS: Fluticasone Propionate Nasal 50 MCG/SPRAY BOTTLE NS SCH ×2 (07:55→20:24)
[2021-01-25] MEDS: Metoprolol XL (24 HR) Succ 50 MG TAB.ER.24H PO SCH ×2 (07:55→20:18)
[2021-01-25] MEDS: Cholecalciferol (D-3) 1,000 UNIT (25MCG) TABLET PO SCH (07:55)
[2021-01-25] MEDS: Furosemide 20 MG TABLET PO SCH (07:56)
[2021-01-25] MEDS: Divalproex (12 HR) 250 MG TABLET PO SCH ×2 (07:56→20:19)
[2021-01-25] MEDS: *HR* SitaGLIPtin 100 MG TABLET PO SCH (07:56)
[2021-01-25] MEDS: *HR* Pioglitazone 45 MG TABLET PO SCH (07:57)
[2021-01-25] MEDS: *HR* Glimepiride 4 MG TABLET PO SCH ×2 (07:57→20:20)
[2021-01-25] MEDS: Insulin DETEMIR 100 UNIT/ML X5UNITS SUBQ SCH (08:03)
[2021-01-25 12:34] LABS: Basophils % 0.3 %; Eosinophils # 0.1 K/mcL (0.0-0.6); Hematocrit 34.4 % (35.3-44.9); Hemoglobin 10.8 g/dL (11.5-15.4); Immature Granulocytes % 0.8 % (0-4); Lymphocytes # 1.1 K/mcL (0.6-4.6); Lymphocytes % 14.7 %; Mean Corpuscular HGB Conc 31.4 g/dL (31.6-35.5); Mean Corpuscular Hemoglobin 30.2 pg (28.0-33.3); Mean Corpuscular Volume 96.1 fL (83.0-100.0); Mean Platelet Volume 10.6 fL (9.4-12.4); Monocytes # 0.7 K/mcL (0.0-1.3); Monocytes % 9.7 %; Neutrophils # 5.4 K/mcL (1.6-8.9); Platelet Count 290 K/mcL (140-400); Red Blood Count 3.58 M/mcL (3.82-4.97); Red Cell Distribution Width 16.4 % (11.5-14.5); Segmented Neutrophils % 73.5 %; White Blood Count 7.3 K/mcL (4.3-11.1)
[2021-01-25 12:57] LABS: Calcium 8.6 mg/dL (8.6-10.3); Potassium 4.2 mEq/L (3.5-5.1)
[2021-01-25] MEDS: Latanoprost 2.5 ML BOTTLE BOTH EYES SCH (20:23)
[2021-01-25] MEDS: (Dulaglutide [Trulicity] 0.75 MG/0.5 ML Pen.Injctr) SQ SCH (23:51)
[2021-01-26] MEDS: *HR* Pioglitazone 45 MG TABLET PO SCH (08:45)
[2021-01-26] MEDS: Cholecalciferol (D-3) 1,000 UNIT (25MCG) TABLET PO SCH (08:46)
[2021-01-26] MEDS: Divalproex (12 HR) 250 MG TABLET PO SCH ×2 (08:46→20:40)
[2021-01-26] MEDS: Metoprolol XL (24 HR) Succ 50 MG TAB.ER.24H PO SCH ×2 (08:46→20:40)
[2021-01-26] MEDS: *HR* Glimepiride 4 MG TABLET PO SCH ×2 (08:46→20:40)
[2021-01-26] MEDS: ARIPiprazole 5 MG TABLET PO SCH (08:47)
[2021-01-26] MEDS: *HR* SitaGLIPtin 100 MG TABLET PO SCH (08:47)
[2021-01-26] MEDS: Insulin DETEMIR 100 UNIT/ML X5UNITS SUBQ SCH (08:47)
[2021-01-26] MEDS: Furosemide 20 MG TABLET PO SCH (08:47)
[2021-01-26] MEDS: Insulin LISPRO 300 UNITS/3 ML VIAL SUBQ SCH ×5 (08:57→20:44)
[2021-01-26] MEDS: Fluticasone Propionate Nasal 50 MCG/SPRAY BOTTLE NS SCH ×2 (09:25→20:45)
[2021-01-26] MEDS: Latanoprost 2.5 ML BOTTLE BOTH EYES SCH (20:45)
[2021-01-27] MEDS: Insulin DETEMIR 100 UNIT/ML X5UNITS SUBQ SCH (10:06)
[2021-01-27] MEDS: Insulin LISPRO 300 UNITS/3 ML VIAL SUBQ SCH ×4 (10:06→20:49)
[2021-01-27] MEDS: Cholecalciferol (D-3) 1,000 UNIT (25MCG) TABLET PO SCH (10:07)
[2021-01-27] MEDS: *HR* SitaGLIPtin 100 MG TABLET PO SCH (10:07)
[2021-01-27] MEDS: Divalproex (12 HR) 250 MG TABLET PO SCH ×2 (10:07→21:12)
[2021-01-27] MEDS: *HR* Pioglitazone 45 MG TABLET PO SCH (10:07)
[2021-01-27] MEDS: Furosemide 20 MG TABLET PO SCH (10:07)
[2021-01-27] MEDS: ARIPiprazole 5 MG TABLET PO SCH (10:07)
[2021-01-27] MEDS: Fluticasone Propionate Nasal 50 MCG/SPRAY BOTTLE NS SCH ×2 (10:08→21:10)
[2021-01-27] MEDS: *HR* Glimepiride 4 MG TABLET PO SCH ×2 (10:08→21:10)
[2021-01-27] MEDS: Metoprolol XL (24 HR) Succ 50 MG TAB.ER.24H PO SCH ×2 (10:08→21:12)
[2021-01-27] MEDS: Latanoprost 2.5 ML BOTTLE BOTH EYES SCH (21:11)
[2021-01-28 07:10] LABS: Basophils % 0.2 %; Eosinophils # 0.1 K/mcL (0.0-0.6); Eosinophils % 1.7 %; Hematocrit 28.5 % (35.3-44.9); Hemoglobin 8.7 g/dL (11.5-15.4); Immature Granulocytes % 0.4 % (0-4); Lymphocytes # 1.6 K/mcL (0.6-4.6); Lymphocytes % 19.2 %; Mean Corpuscular HGB Conc 30.5 g/dL (31.6-35.5); Mean Corpuscular Volume 98.3 fL (83.0-100.0); Mean Platelet Volume 10.3 fL (9.4-12.4); Monocytes % 11.8 %; Neutrophils # 5.5 K/mcL (1.6-8.9); Platelet Count 317 K/mcL (140-400); Red Cell Distribution Width 16.5 % (11.5-14.5); Segmented Neutrophils % 66.7 %; White Blood Count 8.2 K/mcL (4.3-11.1)
[2021-01-28 07:35] LABS: Calcium 8.1 mg/dL (8.6-10.3); Potassium 3.8 mEq/L (3.5-5.1)
[2021-01-28] MEDS: *HR* Pioglitazone 45 MG TABLET PO SCH (08:14)
[2021-01-28] MEDS: Cholecalciferol (D-3) 1,000 UNIT (25MCG) TABLET PO SCH (08:14)
[2021-01-28] MEDS: *HR* SitaGLIPtin 100 MG TABLET PO SCH (08:15)
[2021-01-28] MEDS: Divalproex (12 HR) 250 MG TABLET PO SCH ×2 (08:17→22:18)
[2021-01-28] MEDS: *HR* Glimepiride 4 MG TABLET PO SCH ×2 (08:17→22:19)
[2021-01-28] MEDS: Furosemide 20 MG TABLET PO SCH (08:18)
[2021-01-28] MEDS: Metoprolol XL (24 HR) Succ 50 MG TAB.ER.24H PO SCH ×2 (08:18→22:19)
[2021-01-28] MEDS: ARIPiprazole 5 MG TABLET PO SCH (08:18)
[2021-01-28] MEDS: Insulin DETEMIR 100 UNIT/ML X5UNITS SUBQ SCH (08:19)
[2021-01-28] MEDS: Fluticasone Propionate Nasal 50 MCG/SPRAY BOTTLE NS SCH ×2 (08:19→22:18)
[2021-01-28] MEDS: Insulin LISPRO 300 UNITS/3 ML VIAL SUBQ SCH ×4 (08:20→21:56)
[2021-01-28] MEDS: Latanoprost 2.5 ML BOTTLE BOTH EYES SCH (22:18)
[2021-01-29] MEDS: Insulin LISPRO 300 UNITS/3 ML VIAL SUBQ SCH ×4 (08:40→20:52)
[2021-01-29] MEDS: *HR* SitaGLIPtin 100 MG TABLET PO SCH (08:42)
[2021-01-29] MEDS: Cholecalciferol (D-3) 1,000 UNIT (25MCG) TABLET PO SCH (08:42)
[2021-01-29] MEDS: Magnesium Oxide 400 MG TABLET PO SCH ×2 (08:43→20:51)
[2021-01-29] MEDS: Divalproex (12 HR) 250 MG TABLET PO SCH ×2 (08:43→20:50)
[2021-01-29] MEDS: ARIPiprazole 5 MG TABLET PO SCH (08:43)
[2021-01-29] MEDS: Metoprolol XL (24 HR) Succ 50 MG TAB.ER.24H PO SCH ×2 (08:43→20:51)
[2021-01-29] MEDS: *HR* Glimepiride 4 MG TABLET PO SCH ×2 (08:44→20:51)
[2021-01-29] MEDS: Furosemide 20 MG TABLET PO SCH (08:44)
[2021-01-29] MEDS: Insulin DETEMIR 100 UNIT/ML X5UNITS SUBQ SCH (08:44)
[2021-01-29] MEDS: *HR* Pioglitazone 45 MG TABLET PO SCH (08:44)
[2021-01-29] MEDS: Fluticasone Propionate Nasal 50 MCG/SPRAY BOTTLE NS SCH ×2 (08:49→20:52)
[2021-01-29] MEDS: Latanoprost 2.5 ML BOTTLE BOTH EYES SCH (20:53)
[2021-01-30] MEDS: *HR* Pioglitazone 45 MG TABLET PO SCH (07:49)
[2021-01-30] MEDS: ARIPiprazole 5 MG TABLET PO SCH (07:50)
[2021-01-30] MEDS: Divalproex (12 HR) 250 MG TABLET PO SCH ×2 (07:50→20:31)
[2021-01-30] MEDS: Magnesium Oxide 400 MG TABLET PO SCH ×2 (07:50→20:31)
[2021-01-30] MEDS: *HR* SitaGLIPtin 100 MG TABLET PO SCH (07:50)
[2021-01-30] MEDS: Metoprolol XL (24 HR) Succ 50 MG TAB.ER.24H PO SCH ×2 (07:50→20:32)
[2021-01-30] MEDS: Cholecalciferol (D-3) 1,000 UNIT (25MCG) TABLET PO SCH (07:51)
[2021-01-30] MEDS: Furosemide 20 MG TABLET PO SCH (07:51)
[2021-01-30] MEDS: *HR* Glimepiride 4 MG TABLET PO SCH ×2 (07:51→20:32)
[2021-01-30] MEDS: Insulin LISPRO 300 UNITS/3 ML VIAL SUBQ SCH ×4 (07:52→20:33)
[2021-01-30] MEDS: Fluticasone Propionate Nasal 50 MCG/SPRAY BOTTLE NS SCH ×2 (07:52→20:30)
[2021-01-30] MEDS: Insulin DETEMIR 100 UNIT/ML X5UNITS SUBQ SCH (09:23)
[2021-01-30] MEDS: Latanoprost 2.5 ML BOTTLE BOTH EYES SCH (20:33)
[2021-01-31] MEDS: Insulin LISPRO 300 UNITS/3 ML VIAL SUBQ SCH ×4 (07:44→21:03)
[2021-01-31] MEDS: *HR* Glimepiride 4 MG TABLET PO SCH ×2 (08:53→20:56)
[2021-01-31] MEDS: *HR* SitaGLIPtin 100 MG TABLET PO SCH (08:53)
[2021-01-31] MEDS: Metoprolol XL (24 HR) Succ 50 MG TAB.ER.24H PO SCH ×2 (08:53→20:54)
[2021-01-31] MEDS: Divalproex (12 HR) 250 MG TABLET PO SCH ×2 (08:53→20:54)
[2021-01-31] MEDS: *HR* Pioglitazone 45 MG TABLET PO SCH (08:53)
[2021-01-31] MEDS: Cholecalciferol (D-3) 1,000 UNIT (25MCG) TABLET PO SCH (08:53)
[2021-01-31] MEDS: ARIPiprazole 5 MG TABLET PO SCH (08:53)
[2021-01-31] MEDS: Magnesium Oxide 400 MG TABLET PO SCH ×2 (08:53→20:54)
[2021-01-31] MEDS: Furosemide 20 MG TABLET PO SCH (08:54)
[2021-01-31] MEDS: Insulin DETEMIR 100 UNIT/ML X5UNITS SUBQ SCH (08:54)
[2021-01-31] MEDS: Fluticasone Propionate Nasal 50 MCG/SPRAY BOTTLE NS SCH ×2 (08:54→20:56)
[2021-01-31] MEDS: Latanoprost 2.5 ML BOTTLE BOTH EYES SCH (20:57)
[2021-02-01] MEDS: *HR* SitaGLIPtin 100 MG TABLET PO SCH (08:45)
[2021-02-01] MEDS: Cholecalciferol (D-3) 1,000 UNIT (25MCG) TABLET PO SCH (08:45)
[2021-02-01] MEDS: Furosemide 20 MG TABLET PO SCH (08:45)
[2021-02-01] MEDS: Metoprolol XL (24 HR) Succ 50 MG TAB.ER.24H PO SCH ×2 (08:45→21:00)
[2021-02-01] MEDS: Divalproex (12 HR) 250 MG TABLET PO SCH ×2 (08:46→21:00)
[2021-02-01] MEDS: *HR* Pioglitazone 45 MG TABLET PO SCH (08:46)
[2021-02-01] MEDS: *HR* Glimepiride 4 MG TABLET PO SCH ×2 (08:46→21:00)
[2021-02-01] MEDS: ARIPiprazole 5 MG TABLET PO SCH (08:46)
[2021-02-01] MEDS: Magnesium Oxide 400 MG TABLET PO SCH ×2 (08:47→21:01)
[2021-02-01] MEDS: Insulin DETEMIR 100 UNIT/ML X5UNITS SUBQ SCH (08:47)
[2021-02-01] MEDS: Fluticasone Propionate Nasal 50 MCG/SPRAY BOTTLE NS SCH ×2 (08:48→20:59)
[2021-02-01] MEDS: Insulin LISPRO 300 UNITS/3 ML VIAL SUBQ SCH ×4 (08:48→20:36)
[2021-02-01] MEDS: Latanoprost 2.5 ML BOTTLE BOTH EYES SCH (20:59)
[2021-02-01] MEDS: (Dulaglutide [Trulicity] 0.75 MG/0.5 ML Pen.Injctr) SQ SCH (22:33)
[2021-02-02] MEDS: Fluticasone Propionate Nasal 50 MCG/SPRAY BOTTLE NS SCH ×2 (08:51→22:41)
[2021-02-02] MEDS: Insulin LISPRO 300 UNITS/3 ML VIAL SUBQ SCH ×4 (08:52→22:40)
[2021-02-02] MEDS: Divalproex (12 HR) 250 MG TABLET PO SCH ×2 (08:53→22:39)
[2021-02-02] MEDS: Cholecalciferol (D-3) 1,000 UNIT (25MCG) TABLET PO SCH (08:53)
[2021-02-02] MEDS: *HR* Glimepiride 4 MG TABLET PO SCH ×2 (08:53→22:39)
[2021-02-02] MEDS: Furosemide 20 MG TABLET PO SCH (08:53)
[2021-02-02] MEDS: *HR* Pioglitazone 45 MG TABLET PO SCH (08:53)
[2021-02-02] MEDS: ARIPiprazole 5 MG TABLET PO SCH (08:53)
[2021-02-02] MEDS: Magnesium Oxide 400 MG TABLET PO SCH ×2 (08:54→22:41)
[2021-02-02] MEDS: Metoprolol XL (24 HR) Succ 50 MG TAB.ER.24H PO SCH ×2 (08:54→22:40)
[2021-02-02] MEDS: Insulin DETEMIR 100 UNIT/ML X5UNITS SUBQ SCH (08:54)
[2021-02-02] MEDS: *HR* SitaGLIPtin 100 MG TABLET PO SCH (08:54)
[2021-02-02 09:16] LABS: Calcium 8.9 mg/dL (8.6-10.3); Potassium 4.4 mEq/L (3.5-5.1)
[2021-02-02 09:23] LABS: Hematocrit 33.6 % (35.3-44.9); Hemoglobin 10.6 g/dL (11.5-15.4); Mean Corpuscular HGB Conc 31.5 g/dL (31.6-35.5); Mean Corpuscular Hemoglobin 30.5 pg (28.0-33.3); Mean Corpuscular Volume 96.6 fL (83.0-100.0); Mean Platelet Volume 11.2 fL (9.4-12.4); Platelet Count 306 K/mcL (140-400); Red Blood Count 3.48 M/mcL (3.82-4.97); White Blood Count 6.6 K/mcL (4.3-11.1)
[2021-02-02] MEDS: Latanoprost 2.5 ML BOTTLE BOTH EYES SCH (22:42)
[2021-02-03 07:06] VITALS: BP 118/78; PULSE 81; RESP 20; TEMP 98.2; O2SAT 93
[2021-02-03] MEDS: Insulin LISPRO 300 UNITS/3 ML VIAL SUBQ SCH ×2 (08:25→13:25)
[2021-02-03] MEDS: *HR* Pioglitazone 45 MG TABLET PO SCH (08:55)
[2021-02-03] MEDS: Magnesium Oxide 400 MG TABLET PO SCH (08:56)
[2021-02-03] MEDS: Divalproex (12 HR) 250 MG TABLET PO SCH (08:56)
[2021-02-03] MEDS: Cholecalciferol (D-3) 1,000 UNIT (25MCG) TABLET PO SCH (08:56)
[2021-02-03] MEDS: Furosemide 20 MG TABLET PO SCH (08:56)
[2021-02-03] MEDS: *HR* Glimepiride 4 MG TABLET PO SCH (08:56)
[2021-02-03] MEDS: Metoprolol XL (24 HR) Succ 50 MG TAB.ER.24H PO SCH (08:57)
[2021-02-03] MEDS: ARIPiprazole 5 MG TABLET PO SCH (08:57)
[2021-02-03] MEDS: Insulin DETEMIR 100 UNIT/ML X5UNITS SUBQ SCH (08:58)
[2021-02-03] MEDS ORDERED: *HR* SitaGLIPtin 25 MG TABLET PO SCH (09:00)
[2021-02-03] MEDS: Fluticasone Propionate Nasal 50 MCG/SPRAY BOTTLE NS SCH (09:16)
[2021-02-09] MEDS ORDERED: ARIPIPRAZOLE 400 MG IM SCH (09:00)
== END 2021-02-03 14:15 | disposition home health service (06) | DRG 945 ==
LOC: INPPIK 01-18 23:48
PROVIDERS: ADMIT Internal Medicine; ATTEND Internal Medicine

== ENCOUNTER 2021-05-15 11:48 | Inpatient (IN) ==
[2021-05-15] MEDS ORDERED: 0.9 % Sodium Chloride 1,000 ML IVC ONE (12:09)
[2021-05-15 12:22] LABS: Basophils % 0.2 %; Hematocrit 37.5 % (35.3-44.9); Hemoglobin 11.8 g/dL (11.5-15.4); Immature Granulocytes % 0.4 % (0-4); Lymphocytes # 1.3 K/mcL (0.6-4.6); Lymphocytes % 29.1 %; Mean Corpuscular HGB Conc 31.5 g/dL (31.6-35.5); Mean Corpuscular Hemoglobin 29.1 pg (28.0-33.3); Mean Corpuscular Volume 92.6 fL (83.0-100.0); Mean Platelet Volume 10.3 fL (9.4-12.4); Monocytes # 0.5 K/mcL (0.0-1.3); Monocytes % 11.9 %; Neutrophils # 2.6 K/mcL (1.6-8.9); Platelet Count 177 K/mcL (140-400); Red Blood Count 4.05 M/mcL (3.82-4.97); Red Cell Distribution Width 15.9 % (11.5-14.5); Segmented Neutrophils % 58.4 %; White Blood Count 4.5 K/mcL (4.3-11.1)
[2021-05-15 12:32] LABS: VBG Chloride 97 mEq/L (98-107)
[2021-05-15 12:38] LABS: BUN/Creatinine Ratio 16 (6-26); Blood Urea Nitrogen 32 mg/dL (6-20); Calcium 8.2 mg/dL (8.6-10.3); Carbon Dioxide 33 mEq/L (23-29); Glucose 152 mg/dL (70-105); eGFR For African Americans 32 (> 60); eGFR For Non-African Americans 27 (> 60)
[2021-05-15 12:42] LABS: Troponin I 0.03 ng/mL (< 0.04)
[2021-05-15] MEDS ORDERED: 0.9 % Sodium Chloride 1,000 ML IVC SCH (13:00)
[2021-05-15] MEDS ORDERED: Naloxone 0.4 MG/ML INJ IVP PRN (14:47)
[2021-05-15] MEDS ORDERED: Acetaminophen 325 MG TABLET PO PRN (14:47)
[2021-05-15] MEDS ORDERED: Ondansetron 4 MG/2 ML VIAL IVP PRN (14:47)
[2021-05-15 15:34] LABS: Albumin 2.9 g/dL (3.5-5.7); Albumin/Globulin Ratio 0.8 (1.1-2.2); Bilirubin,Indirect 0.2 mg/dL (0.0-1.0); Bilirubin,Total 0.2 mg/dL (0.3-1.0); Globulin 3.5 g/dL (2.4-3.5); Total Protein 6.4 g/dL (6.4-8.9)
[2021-05-15] MEDS ORDERED: Dextrose Gel 15 GM/37.5 ML TUBE PO PRN ×2 (15:44)
[2021-05-15] MEDS ORDERED: *HR* Dextrose 50 % in Water (Syg) 50 ML SYRINGE IVP PRN (15:44)
[2021-05-15] MEDS ORDERED: D5% in Water 1,000 ML IVC PRN (15:44)
[2021-05-15] MEDS ORDERED: ARIPiprazole 400 MG SUSER.SYR IM SCH (15:45)
[2021-05-15 16:07] LABS: Calcium 7.9 mg/dL (8.6-10.3); Potassium 3.6 mEq/L (3.5-5.1)
[2021-05-15] MEDS ORDERED: Furosemide 20 MG/2 ML VIAL IVP ONE ×2 (18:19)
[2021-05-15] MEDS: Insulin LISPRO 300 UNITS/3 ML VIAL SUBQ SCH (18:43)
[2021-05-15] MEDS: Divalproex (12 HR) 250 MG TABLET PO SCH (20:23)
[2021-05-15] MEDS: Nystatin POWDER 30 GM BOTTLE TP SCH (20:24)
[2021-05-15] MEDS: Metoprolol XL (24 HR) Succ 50 MG TAB.ER.24H PO SCH ×2 (20:24→20:50)
[2021-05-15] MEDS: Fluticasone Propionate Nasal 50 MCG/SPRAY BOTTLE NS SCH (20:25)
[2021-05-15] MEDS: *HR* Heparin 5,000 UNIT/ML VIAL SQ SCH (20:25)
[2021-05-15] MEDS ORDERED: Latanoprost 2.5 ML BOTTLE BOTH EYES SCH (21:00)
[2021-05-15] MEDS ORDERED: Insulin LISPRO 300 UNITS/3 ML VIAL SUBQ SCH (21:00)
[2021-05-15] MEDS: Budesonide/Formoterol 160/4.5 1 PUFF INH IH SCH (22:04)
[2021-05-15] MEDS ORDERED: Furosemide 40 MG/4 ML VIAL IVP ONE (23:32)
[2021-05-16] MEDS: *HR* Heparin 5,000 UNIT/ML VIAL SQ SCH (05:06)
[2021-05-16 07:32] VITALS: PULSE 81
[2021-05-16 08:00] LABS: Basophils % 0.5 %; Hematocrit 41.3 % (35.3-44.9); Immature Granulocytes % 2.3 % (0-4); Lymphocytes # 0.9 K/mcL (0.6-4.6); Lymphocytes % 23.7 %; Mean Corpuscular HGB Conc 31.5 g/dL (31.6-35.5); Mean Corpuscular Hemoglobin 28.8 pg (28.0-33.3); Mean Corpuscular Volume 91.6 fL (83.0-100.0); Monocytes # 0.3 K/mcL (0.0-1.3); Monocytes % 6.5 %; Neutrophils # 2.6 K/mcL (1.6-8.9); Platelet Count 196 K/mcL (140-400); Red Blood Count 4.51 M/mcL (3.82-4.97); Red Cell Distribution Width 15.7 % (11.5-14.5); White Blood Count 3.8 K/mcL (4.3-11.1)
[2021-05-16] MEDS ORDERED: Furosemide 20 MG/2 ML VIAL IVP ONE (08:02)
[2021-05-16] MEDS ORDERED: Dexamethasone Sodium Phos/PF 10 MG/ML VIAL IVP ONE (08:15)
[2021-05-16] MEDS: Fluticasone Propionate Nasal 50 MCG/SPRAY BOTTLE NS SCH (08:32)
[2021-05-16] MEDS: Divalproex (12 HR) 250 MG TABLET PO SCH (08:32)
[2021-05-16] MEDS: Metoprolol XL (24 HR) Succ 50 MG TAB.ER.24H PO SCH (08:32)
[2021-05-16] MEDS: Nystatin POWDER 30 GM BOTTLE TP SCH (08:32)
[2021-05-16] MEDS: Insulin LISPRO 300 UNITS/3 ML VIAL SUBQ SCH (08:32)
[2021-05-16] MEDS ORDERED: ARIPiprazole 5 MG TABLET PO SCH (09:00)
[2021-05-16] MEDS ORDERED: Cholecalciferol (D-3) 1,000 UNIT (25MCG) TABLET PO SCH (09:00)
[2021-05-16 09:16] LABS: ABG Base Excess 9 mEq/L (-2 to 3); ABG HCO3 36 mEq/L (21-27); ABG Oxygen Saturation 95 % (95-98); ABG PCO2 58 mmHg (35-45); ABG PO2 75 mmHg (85-104); ABG TCO2 38 mEq/L (20-26); Blood Gas Modality BiLevel
[2021-05-16 09:29] VITALS: BP 128/76; RESP 18; TEMP 96.1; O2SAT 94
[2021-05-16] MEDS: Budesonide/Formoterol 160/4.5 1 PUFF INH IH SCH (10:36)
[2021-05-16 13:09] LABS: Albumin 3.1 g/dL (3.5-5.7); Albumin/Globulin Ratio 0.8 (1.1-2.2); Bilirubin,Total 0.2 mg/dL (0.3-1.0); Calcium 8.3 mg/dL (8.6-10.3); Magnesium 1.5 mg/dL (1.6-2.6); Total Protein 7.1 g/dL (6.4-8.9)
[2021-05-17] MEDS ORDERED: Furosemide 20 MG TABLET PO SCH (09:00)
[2021-05-17] MEDS ORDERED: Dexamethasone Sodium Phos/PF 10 MG/ML VIAL IVP SCH (09:00)
== END 2021-05-16 10:20 | disposition short-term general hospital (02) | DRG 177 ==
LOC: EMEROOPIK 11:48 → INPPIK 11:48
PROVIDERS: ADMIT Pharmacist; ATTEND Pharmacist

== ENCOUNTER 2021-05-27 19:37 | Inpatient (IN) ==
[2021-05-28] MEDS ORDERED: *HR* Dextrose 50 % in Water (Syg) 50 ML SYRINGE IVP PRN (13:05)
[2021-05-28] MEDS ORDERED: D5% in Water 1,000 ML IVC PRN (13:05)
[2021-05-28] MEDS ORDERED: Dextrose Gel 15 GM/37.5 ML TUBE PO PRN ×2 (13:05)
[2021-05-28] MEDS ORDERED: Acetaminophen 325 MG TABLET PO PRN (13:06)
[2021-05-28] MEDS ORDERED: Ondansetron ODT 4 MG TAB.RAPDIS SL PRN (13:06)
[2021-05-28] MEDS ORDERED: ARIPiprazole 400 MG SUSER.SYR IM SCH (13:15)
[2021-05-28] MEDS: Insulin LISPRO 300 UNITS/3 ML VIAL SUBQ SCH ×2 (18:25→22:00)
[2021-05-28] MEDS: Latanoprost 2.5 ML BOTTLE BOTH EYES SCH (21:59)
[2021-05-28] MEDS: Metoprolol 100 MG TABLET PO SCH (21:59)
[2021-05-28] MEDS: Divalproex (12 HR) 250 MG TABLET PO SCH (21:59)
[2021-05-28] MEDS: Fluticasone Propionate Nasal 50 MCG/SPRAY BOTTLE NS SCH (22:01)
[2021-05-29] MEDS: *HR* Enoxaparin 40 MG/0.4 ML SYRINGE SQ SCH (06:07)
[2021-05-29 07:28] LABS: Basophils % 0.3 %; Eosinophils # 0.1 K/mcL (0.0-0.6); Eosinophils % 1.3 %; Hematocrit 38.2 % (35.3-44.9); Hemoglobin 12.3 g/dL (11.5-15.4); Immature Granulocytes % 1.3 % (0-4); Lymphocytes # 2.2 K/mcL (0.6-4.6); Lymphocytes % 55.1 %; Mean Corpuscular HGB Conc 32.2 g/dL (31.6-35.5); Mean Corpuscular Hemoglobin 29.1 pg (28.0-33.3); Mean Corpuscular Volume 90.3 fL (83.0-100.0); Mean Platelet Volume 11.6 fL (9.4-12.4); Monocytes # 0.5 K/mcL (0.0-1.3); Monocytes % 12.6 %; Neutrophils # 1.2 K/mcL (1.6-8.9); Platelet Count 183 K/mcL (140-400); Red Blood Count 4.23 M/mcL (3.82-4.97); Red Cell Distribution Width 15.6 % (11.5-14.5); Segmented Neutrophils % 29.4 %; White Blood Count 3.9 K/mcL (4.3-11.1)
[2021-05-29 08:06] LABS: BUN/Creatinine Ratio 33 (6-26); Blood Urea Nitrogen 32 mg/dL (6-20); Calcium 8.6 mg/dL (8.6-10.3); Carbon Dioxide 36 mEq/L (23-29); Chloride 98 mEq/L (98-107); Glucose 139 mg/dL (70-105); Osmolality,Calculated 303 (280-300); Potassium 3.6 mEq/L (3.5-5.1); Sodium 142 mEq/L (136-145); eGFR For African Americans > 60 (> 60); eGFR For Non-African Americans > 60 (> 60)
[2021-05-29] MEDS: ARIPiprazole 5 MG TABLET PO SCH (08:18)
[2021-05-29] MEDS: Furosemide 20 MG TABLET PO SCH (08:18)
[2021-05-29] MEDS: Divalproex (12 HR) 250 MG TABLET PO SCH ×2 (08:18→20:19)
[2021-05-29] MEDS: *HR* Pioglitazone 45 MG TABLET PO SCH (08:18)
[2021-05-29] MEDS: Metoprolol 100 MG TABLET PO SCH ×2 (08:18→20:19)
[2021-05-29] MEDS: Cholecalciferol (D-3) 1,000 UNIT (25MCG) TABLET PO SCH (08:18)
[2021-05-29] MEDS: *HR* Glimepiride 4 MG TABLET PO SCH ×2 (08:18→16:53)
[2021-05-29] MEDS: Fluticasone Propionate Nasal 50 MCG/SPRAY BOTTLE NS SCH ×2 (08:19→20:27)
[2021-05-29] MEDS: Insulin LISPRO 300 UNITS/3 ML VIAL SUBQ SCH ×4 (08:19→20:28)
[2021-05-29] MEDS: Insulin DETEMIR 100 UNIT/ML X5UNITS SUBQ SCH (08:35)
[2021-05-29] MEDS: Latanoprost 2.5 ML BOTTLE BOTH EYES SCH (20:28)
[2021-05-30] MEDS: Insulin LISPRO 300 UNITS/3 ML VIAL SUBQ SCH ×4 (08:51→21:00)
[2021-05-30] MEDS: ARIPiprazole 5 MG TABLET PO SCH (08:53)
[2021-05-30] MEDS: Insulin DETEMIR 100 UNIT/ML X5UNITS SUBQ SCH (08:53)
[2021-05-30] MEDS: Divalproex (12 HR) 250 MG TABLET PO SCH ×2 (08:53→20:59)
[2021-05-30] MEDS: Metoprolol 100 MG TABLET PO SCH ×2 (08:53→21:00)
[2021-05-30] MEDS: *HR* Enoxaparin 40 MG/0.4 ML SYRINGE SQ SCH (08:53)
[2021-05-30] MEDS: *HR* Pioglitazone 45 MG TABLET PO SCH (08:53)
[2021-05-30] MEDS: Furosemide 20 MG TABLET PO SCH (08:53)
[2021-05-30] MEDS: Fluticasone Propionate Nasal 50 MCG/SPRAY BOTTLE NS SCH ×2 (08:54→21:01)
[2021-05-30] MEDS: *HR* Glimepiride 4 MG TABLET PO SCH ×2 (08:54→17:13)
[2021-05-30] MEDS: Cholecalciferol (D-3) 1,000 UNIT (25MCG) TABLET PO SCH (08:54)
[2021-05-30] MEDS: Latanoprost 2.5 ML BOTTLE BOTH EYES SCH (21:02)
[2021-05-31] MEDS: *HR* Enoxaparin 40 MG/0.4 ML SYRINGE SQ SCH (06:32)
[2021-05-31 07:06] LABS: Hematocrit 39.1 % (35.3-44.9); Hemoglobin 12.3 g/dL (11.5-15.4); Mean Corpuscular HGB Conc 31.5 g/dL (31.6-35.5); Mean Corpuscular Hemoglobin 28.5 pg (28.0-33.3); Mean Corpuscular Volume 90.7 fL (83.0-100.0); Mean Platelet Volume 11.8 fL (9.4-12.4); Platelet Count 165 K/mcL (140-400); Red Blood Count 4.31 M/mcL (3.82-4.97); Red Cell Distribution Width 15.6 % (11.5-14.5); White Blood Count 4.3 K/mcL (4.3-11.1)
[2021-05-31 07:27] LABS: BUN/Creatinine Ratio 28 (6-26); Blood Urea Nitrogen 29 mg/dL (6-20); Calcium 8.8 mg/dL (8.6-10.3); Carbon Dioxide 37 mEq/L (23-29); Chloride 98 mEq/L (98-107); Glucose 152 mg/dL (70-105); Magnesium 1.1 mg/dL (1.6-2.6); Osmolality,Calculated 299 (280-300); Potassium 3.9 mEq/L (3.5-5.1); Sodium 140 mEq/L (136-145); eGFR For African Americans > 60 (> 60); eGFR For Non-African Americans 57 (> 60)
[2021-05-31] MEDS: Insulin LISPRO 300 UNITS/3 ML VIAL SUBQ SCH ×4 (08:31→22:35)
[2021-05-31] MEDS: Furosemide 40 MG TABLET PO SCH (08:32)
[2021-05-31] MEDS: Fluticasone Propionate Nasal 50 MCG/SPRAY BOTTLE NS SCH ×2 (08:32→22:33)
[2021-05-31] MEDS: *HR* Pioglitazone 45 MG TABLET PO SCH (08:33)
[2021-05-31] MEDS: *HR* Glimepiride 4 MG TABLET PO SCH ×2 (08:33→17:32)
[2021-05-31] MEDS: Cholecalciferol (D-3) 1,000 UNIT (25MCG) TABLET PO SCH (08:33)
[2021-05-31] MEDS: Metoprolol 100 MG TABLET PO SCH ×2 (08:33→22:34)
[2021-05-31] MEDS: Divalproex (12 HR) 250 MG TABLET PO SCH ×2 (08:33→22:34)
[2021-05-31] MEDS: ARIPiprazole 5 MG TABLET PO SCH (08:33)
[2021-05-31] MEDS: Insulin DETEMIR 100 UNIT/ML X5UNITS SUBQ SCH (09:02)
[2021-05-31] MEDS: Latanoprost 2.5 ML BOTTLE BOTH EYES SCH (22:33)
[2021-06-01] MEDS: *HR* Enoxaparin 40 MG/0.4 ML SYRINGE SQ SCH (06:30)
[2021-06-01] MEDS: Divalproex (12 HR) 250 MG TABLET PO SCH ×2 (08:24→21:53)
[2021-06-01] MEDS: ARIPiprazole 5 MG TABLET PO SCH (08:24)
[2021-06-01] MEDS: Fluticasone Propionate Nasal 50 MCG/SPRAY BOTTLE NS SCH ×2 (08:24→21:54)
[2021-06-01] MEDS: Insulin LISPRO 300 UNITS/3 ML VIAL SUBQ SCH ×4 (08:25→21:53)
[2021-06-01] MEDS: Furosemide 40 MG TABLET PO SCH (08:25)
[2021-06-01] MEDS: *HR* Pioglitazone 45 MG TABLET PO SCH (08:25)
[2021-06-01] MEDS: Cholecalciferol (D-3) 1,000 UNIT (25MCG) TABLET PO SCH (08:25)
[2021-06-01] MEDS: Metoprolol 100 MG TABLET PO SCH ×2 (08:25→21:53)
[2021-06-01] MEDS: *HR* Glimepiride 4 MG TABLET PO SCH ×2 (08:25→16:57)
[2021-06-01] MEDS: Insulin DETEMIR 100 UNIT/ML X5UNITS SUBQ SCH (08:35)
[2021-06-01] MEDS: Latanoprost 2.5 ML BOTTLE BOTH EYES SCH (21:56)
[2021-06-02] MEDS: *HR* Enoxaparin 40 MG/0.4 ML SYRINGE SQ SCH (05:26)
[2021-06-02] MEDS: Insulin LISPRO 300 UNITS/3 ML VIAL SUBQ SCH ×4 (08:53→20:09)
[2021-06-02] MEDS: Cholecalciferol (D-3) 1,000 UNIT (25MCG) TABLET PO SCH (10:14)
[2021-06-02] MEDS: Divalproex (12 HR) 250 MG TABLET PO SCH ×2 (10:14→20:08)
[2021-06-02] MEDS: *HR* Glimepiride 4 MG TABLET PO SCH ×2 (10:15→16:54)
[2021-06-02] MEDS: ARIPiprazole 5 MG TABLET PO SCH (10:15)
[2021-06-02] MEDS: Metoprolol 100 MG TABLET PO SCH ×2 (10:15→20:07)
[2021-06-02] MEDS: Insulin DETEMIR 100 UNIT/ML X5UNITS SUBQ SCH (10:15)
[2021-06-02] MEDS: *HR* Pioglitazone 45 MG TABLET PO SCH (10:15)
[2021-06-02] MEDS: Fluticasone Propionate Nasal 50 MCG/SPRAY BOTTLE NS SCH ×2 (10:19→20:08)
[2021-06-02] MEDS: Furosemide 40 MG TABLET PO SCH (10:19)
[2021-06-02] MEDS: Latanoprost 2.5 ML BOTTLE BOTH EYES SCH (20:09)
[2021-06-03] MEDS: *HR* Enoxaparin 40 MG/0.4 ML SYRINGE SQ SCH (05:34)
[2021-06-03] MEDS: Metoprolol 100 MG TABLET PO SCH ×2 (07:26→20:08)
[2021-06-03] MEDS: ARIPiprazole 5 MG TABLET PO SCH (07:26)
[2021-06-03] MEDS: Furosemide 40 MG TABLET PO SCH (07:26)
[2021-06-03] MEDS: Divalproex (12 HR) 250 MG TABLET PO SCH ×2 (07:26→20:07)
[2021-06-03] MEDS: Cholecalciferol (D-3) 1,000 UNIT (25MCG) TABLET PO SCH (07:26)
[2021-06-03] MEDS: Insulin LISPRO 300 UNITS/3 ML VIAL SUBQ SCH ×4 (07:26→20:09)
[2021-06-03] MEDS: *HR* Pioglitazone 45 MG TABLET PO SCH (07:26)
[2021-06-03] MEDS: *HR* Glimepiride 4 MG TABLET PO SCH ×2 (07:27→17:17)
[2021-06-03] MEDS: Fluticasone Propionate Nasal 50 MCG/SPRAY BOTTLE NS SCH ×2 (07:27→20:08)
[2021-06-03] MEDS: Insulin DETEMIR 100 UNIT/ML X5UNITS SUBQ SCH (08:05)
[2021-06-03] MEDS: Latanoprost 2.5 ML BOTTLE BOTH EYES SCH (20:09)
[2021-06-04] MEDS: *HR* Enoxaparin 40 MG/0.4 ML SYRINGE SQ SCH (05:26)
[2021-06-04] MEDS: Insulin LISPRO 300 UNITS/3 ML VIAL SUBQ SCH ×4 (07:34→21:31)
[2021-06-04] MEDS: Furosemide 40 MG TABLET PO SCH (08:15)
[2021-06-04] MEDS: Insulin DETEMIR 100 UNIT/ML X5UNITS SUBQ SCH (08:15)
[2021-06-04] MEDS: Divalproex (12 HR) 250 MG TABLET PO SCH ×2 (08:15→21:31)
[2021-06-04] MEDS: ARIPiprazole 5 MG TABLET PO SCH (08:15)
[2021-06-04] MEDS: *HR* Pioglitazone 45 MG TABLET PO SCH (08:16)
[2021-06-04] MEDS: Fluticasone Propionate Nasal 50 MCG/SPRAY BOTTLE NS SCH ×2 (08:16→21:31)
[2021-06-04] MEDS: *HR* Glimepiride 4 MG TABLET PO SCH ×2 (08:16→17:11)
[2021-06-04] MEDS: Cholecalciferol (D-3) 1,000 UNIT (25MCG) TABLET PO SCH (08:16)
[2021-06-04] MEDS: Metoprolol 100 MG TABLET PO SCH ×2 (08:16→21:31)
[2021-06-04] MEDS: Latanoprost 2.5 ML BOTTLE BOTH EYES SCH (21:31)
[2021-06-05] MEDS: *HR* Enoxaparin 40 MG/0.4 ML SYRINGE SQ SCH (05:42)
[2021-06-05] MEDS: Insulin LISPRO 300 UNITS/3 ML VIAL SUBQ SCH ×4 (07:22→20:10)
[2021-06-05] MEDS: *HR* Glimepiride 4 MG TABLET PO SCH ×2 (08:34→15:58)
[2021-06-05] MEDS: Furosemide 40 MG TABLET PO SCH (08:34)
[2021-06-05] MEDS: *HR* Pioglitazone 45 MG TABLET PO SCH (08:34)
[2021-06-05] MEDS: Cholecalciferol (D-3) 1,000 UNIT (25MCG) TABLET PO SCH (08:34)
[2021-06-05] MEDS: ARIPiprazole 5 MG TABLET PO SCH (08:34)
[2021-06-05] MEDS: Divalproex (12 HR) 250 MG TABLET PO SCH ×2 (08:34→20:10)
[2021-06-05] MEDS: Metoprolol 100 MG TABLET PO SCH ×2 (08:34→20:10)
[2021-06-05] MEDS: Insulin DETEMIR 100 UNIT/ML X5UNITS SUBQ SCH (08:35)
[2021-06-05] MEDS: Fluticasone Propionate Nasal 50 MCG/SPRAY BOTTLE NS SCH ×2 (08:35→20:09)
[2021-06-05 08:44] LABS: Hematocrit 37.9 % (35.3-44.9); Mean Corpuscular HGB Conc 31.7 g/dL (31.6-35.5); Mean Corpuscular Hemoglobin 28.9 pg (28.0-33.3); Mean Corpuscular Volume 91.3 fL (83.0-100.0); Mean Platelet Volume 12.1 fL (9.4-12.4); Platelet Count 157 K/mcL (140-400); Red Blood Count 4.15 M/mcL (3.82-4.97); Red Cell Distribution Width 16.8 % (11.5-14.5); White Blood Count 3.5 K/mcL (4.3-11.1)
[2021-06-05 08:59] LABS: BUN/Creatinine Ratio 24 (6-26); Blood Urea Nitrogen 23 mg/dL (6-20); Calcium 8.3 mg/dL (8.6-10.3); Carbon Dioxide 34 mEq/L (23-29); Chloride 100 mEq/L (98-107); Glucose 98 mg/dL (70-105); Osmolality,Calculated 298 (280-300); Potassium 3.7 mEq/L (3.5-5.1); Sodium 142 mEq/L (136-145); eGFR For African Americans > 60 (> 60); eGFR For Non-African Americans > 60 (> 60)
[2021-06-05] MEDS: Latanoprost 2.5 ML BOTTLE BOTH EYES SCH (20:10)
[2021-06-06] MEDS: *HR* Enoxaparin 40 MG/0.4 ML SYRINGE SQ SCH (05:23)
[2021-06-06] MEDS: Insulin LISPRO 300 UNITS/3 ML VIAL SUBQ SCH ×4 (07:57→20:51)
[2021-06-06] MEDS: Divalproex (12 HR) 250 MG TABLET PO SCH ×2 (08:09→20:50)
[2021-06-06] MEDS: Metoprolol 100 MG TABLET PO SCH ×2 (08:10→20:51)
[2021-06-06] MEDS: Furosemide 40 MG TABLET PO SCH (08:10)
[2021-06-06] MEDS: ARIPiprazole 5 MG TABLET PO SCH (08:10)
[2021-06-06] MEDS: Cholecalciferol (D-3) 1,000 UNIT (25MCG) TABLET PO SCH (08:10)
[2021-06-06] MEDS: *HR* Pioglitazone 45 MG TABLET PO SCH (08:10)
[2021-06-06] MEDS: *HR* Glimepiride 4 MG TABLET PO SCH ×2 (08:10→16:53)
[2021-06-06] MEDS: Fluticasone Propionate Nasal 50 MCG/SPRAY BOTTLE NS SCH ×2 (08:17→20:51)
[2021-06-06] MEDS: Insulin DETEMIR 100 UNIT/ML X5UNITS SUBQ SCH (08:54)
[2021-06-06] MEDS: Latanoprost 2.5 ML BOTTLE BOTH EYES SCH (20:51)
[2021-06-07] MEDS: *HR* Enoxaparin 40 MG/0.4 ML SYRINGE SQ SCH (05:41)
[2021-06-07] MEDS: Insulin LISPRO 300 UNITS/3 ML VIAL SUBQ SCH ×4 (07:18→19:51)
[2021-06-07] MEDS: *HR* Glimepiride 4 MG TABLET PO SCH ×2 (07:31→16:41)
[2021-06-07] MEDS: Fluticasone Propionate Nasal 50 MCG/SPRAY BOTTLE NS SCH ×2 (09:07→19:51)
[2021-06-07] MEDS: Insulin DETEMIR 100 UNIT/ML X5UNITS SUBQ SCH (09:08)
[2021-06-07] MEDS: Metoprolol 100 MG TABLET PO SCH ×2 (09:08→19:50)
[2021-06-07] MEDS: Divalproex (12 HR) 250 MG TABLET PO SCH ×2 (09:08→19:50)
[2021-06-07] MEDS: Cholecalciferol (D-3) 1,000 UNIT (25MCG) TABLET PO SCH (09:08)
[2021-06-07] MEDS: ARIPiprazole 5 MG TABLET PO SCH (09:08)
[2021-06-07] MEDS: *HR* Pioglitazone 45 MG TABLET PO SCH (09:08)
[2021-06-07] MEDS: Furosemide 40 MG TABLET PO SCH (09:08)
[2021-06-07] MEDS: Latanoprost 2.5 ML BOTTLE BOTH EYES SCH (19:50)
[2021-06-08] MEDS: *HR* Enoxaparin 40 MG/0.4 ML SYRINGE SQ SCH (06:05)
[2021-06-08] MEDS: Insulin LISPRO 300 UNITS/3 ML VIAL SUBQ SCH ×4 (07:22→20:33)
[2021-06-08] MEDS: Divalproex (12 HR) 250 MG TABLET PO SCH ×2 (07:30→20:26)
[2021-06-08] MEDS: Cholecalciferol (D-3) 1,000 UNIT (25MCG) TABLET PO SCH (07:30)
[2021-06-08] MEDS: Metoprolol 100 MG TABLET PO SCH ×2 (07:30→20:26)
[2021-06-08] MEDS: Furosemide 40 MG TABLET PO SCH (07:30)
[2021-06-08] MEDS: *HR* Glimepiride 4 MG TABLET PO SCH ×2 (07:30→16:51)
[2021-06-08] MEDS: *HR* Pioglitazone 45 MG TABLET PO SCH (07:30)
[2021-06-08] MEDS: ARIPiprazole 5 MG TABLET PO SCH (07:30)
[2021-06-08] MEDS: Fluticasone Propionate Nasal 50 MCG/SPRAY BOTTLE NS SCH ×2 (07:35→20:27)
[2021-06-08] MEDS: Insulin DETEMIR 100 UNIT/ML X5UNITS SUBQ SCH (08:42)
[2021-06-08] MEDS: Latanoprost 2.5 ML BOTTLE BOTH EYES SCH (20:28)
[2021-06-09] MEDS: *HR* Enoxaparin 40 MG/0.4 ML SYRINGE SQ SCH (05:55)
[2021-06-09] MEDS: Insulin LISPRO 300 UNITS/3 ML VIAL SUBQ SCH ×4 (07:16→20:12)
[2021-06-09] MEDS: *HR* Pioglitazone 45 MG TABLET PO SCH (09:22)
[2021-06-09] MEDS: ARIPiprazole 5 MG TABLET PO SCH (09:22)
[2021-06-09] MEDS: *HR* Glimepiride 4 MG TABLET PO SCH ×2 (09:22→16:27)
[2021-06-09] MEDS: Furosemide 40 MG TABLET PO SCH (09:22)
[2021-06-09] MEDS: Cholecalciferol (D-3) 1,000 UNIT (25MCG) TABLET PO SCH (09:23)
[2021-06-09] MEDS: Divalproex (12 HR) 250 MG TABLET PO SCH ×2 (09:23→20:12)
[2021-06-09] MEDS: Insulin DETEMIR 100 UNIT/ML X5UNITS SUBQ SCH (09:23)
[2021-06-09] MEDS: Metoprolol 100 MG TABLET PO SCH ×2 (09:23→20:12)
[2021-06-09] MEDS: Fluticasone Propionate Nasal 50 MCG/SPRAY BOTTLE NS SCH ×2 (09:23→20:12)
[2021-06-09] MEDS: Latanoprost 2.5 ML BOTTLE BOTH EYES SCH (20:13)
[2021-06-10] MEDS: *HR* Enoxaparin 40 MG/0.4 ML SYRINGE SQ SCH (05:47)
[2021-06-10] MEDS: Insulin LISPRO 300 UNITS/3 ML VIAL SUBQ SCH ×4 (07:09→21:21)
[2021-06-10] MEDS: Cholecalciferol (D-3) 1,000 UNIT (25MCG) TABLET PO SCH (08:57)
[2021-06-10] MEDS: Metoprolol 100 MG TABLET PO SCH ×2 (08:58→20:32)
[2021-06-10] MEDS: *HR* Glimepiride 4 MG TABLET PO SCH ×2 (08:58→15:45)
[2021-06-10] MEDS: Furosemide 40 MG TABLET PO SCH (08:58)
[2021-06-10] MEDS: Divalproex (12 HR) 250 MG TABLET PO SCH ×2 (08:58→20:32)
[2021-06-10] MEDS: Fluticasone Propionate Nasal 50 MCG/SPRAY BOTTLE NS SCH ×2 (08:58→20:33)
[2021-06-10] MEDS: ARIPiprazole 5 MG TABLET PO SCH (08:58)
[2021-06-10] MEDS: *HR* Pioglitazone 45 MG TABLET PO SCH (09:09)
[2021-06-10] MEDS: Insulin DETEMIR 100 UNIT/ML X5UNITS SUBQ SCH (09:09)
[2021-06-10] MEDS: Latanoprost 2.5 ML BOTTLE BOTH EYES SCH (20:32)
[2021-06-11] MEDS: *HR* Enoxaparin 40 MG/0.4 ML SYRINGE SQ SCH (05:55)
[2021-06-11] MEDS: Insulin LISPRO 300 UNITS/3 ML VIAL SUBQ SCH ×5 (07:32→19:51)
[2021-06-11] MEDS: *HR* Glimepiride 4 MG TABLET PO SCH (07:59)
[2021-06-11] MEDS: Metoprolol 100 MG TABLET PO SCH ×2 (07:59→19:51)
[2021-06-11] MEDS: Divalproex (12 HR) 250 MG TABLET PO SCH ×2 (07:59→19:51)
[2021-06-11] MEDS: *HR* Pioglitazone 45 MG TABLET PO SCH (07:59)
[2021-06-11] MEDS: Cholecalciferol (D-3) 1,000 UNIT (25MCG) TABLET PO SCH (07:59)
[2021-06-11] MEDS: ARIPiprazole 5 MG TABLET PO SCH (07:59)
[2021-06-11] MEDS: Furosemide 40 MG TABLET PO SCH (07:59)
[2021-06-11] MEDS: Fluticasone Propionate Nasal 50 MCG/SPRAY BOTTLE NS SCH ×2 (08:01→19:50)
[2021-06-11] MEDS: Insulin DETEMIR 100 UNIT/ML X5UNITS SUBQ SCH (10:31)
[2021-06-11] MEDS: Latanoprost 2.5 ML BOTTLE BOTH EYES SCH (19:50)
[2021-06-12] MEDS: *HR* Enoxaparin 40 MG/0.4 ML SYRINGE SQ SCH (05:50)
[2021-06-12] MEDS: Insulin LISPRO 300 UNITS/3 ML VIAL SUBQ SCH ×4 (07:39→19:55)
[2021-06-12] MEDS: Furosemide 40 MG TABLET PO SCH (08:17)
[2021-06-12] MEDS: Insulin DETEMIR 100 UNIT/ML X5UNITS SUBQ SCH (08:17)
[2021-06-12] MEDS: Divalproex (12 HR) 250 MG TABLET PO SCH ×2 (08:17→19:54)
[2021-06-12] MEDS: ARIPiprazole 5 MG TABLET PO SCH (08:18)
[2021-06-12] MEDS: Fluticasone Propionate Nasal 50 MCG/SPRAY BOTTLE NS SCH ×2 (08:18→19:53)
[2021-06-12] MEDS: *HR* Pioglitazone 45 MG TABLET PO SCH (08:18)
[2021-06-12] MEDS: Metoprolol 100 MG TABLET PO SCH ×2 (08:18→19:54)
[2021-06-12] MEDS: Cholecalciferol (D-3) 1,000 UNIT (25MCG) TABLET PO SCH (08:18)
[2021-06-12] MEDS: Latanoprost 2.5 ML BOTTLE BOTH EYES SCH (19:59)
[2021-06-13] MEDS: *HR* Enoxaparin 40 MG/0.4 ML SYRINGE SQ SCH (05:49)
[2021-06-13] MEDS: Insulin LISPRO 300 UNITS/3 ML VIAL SUBQ SCH ×4 (07:25→20:50)
[2021-06-13] MEDS: ARIPiprazole 5 MG TABLET PO SCH (08:27)
[2021-06-13] MEDS: Furosemide 40 MG TABLET PO SCH (08:27)
[2021-06-13] MEDS: Insulin DETEMIR 100 UNIT/ML X5UNITS SUBQ SCH (08:27)
[2021-06-13] MEDS: Fluticasone Propionate Nasal 50 MCG/SPRAY BOTTLE NS SCH ×2 (08:27→19:43)
[2021-06-13] MEDS: Metoprolol 100 MG TABLET PO SCH ×2 (08:27→19:44)
[2021-06-13] MEDS: Cholecalciferol (D-3) 1,000 UNIT (25MCG) TABLET PO SCH (08:27)
[2021-06-13] MEDS: *HR* Pioglitazone 45 MG TABLET PO SCH (08:27)
[2021-06-13] MEDS: Divalproex (12 HR) 250 MG TABLET PO SCH ×2 (08:27→19:44)
[2021-06-13] MEDS: Latanoprost 2.5 ML BOTTLE BOTH EYES SCH (19:43)
[2021-06-14] MEDS: *HR* Enoxaparin 40 MG/0.4 ML SYRINGE SQ SCH (05:25)
[2021-06-14] MEDS: Insulin LISPRO 300 UNITS/3 ML VIAL SUBQ SCH ×4 (07:22→19:52)
[2021-06-14] MEDS: Insulin DETEMIR 100 UNIT/ML X5UNITS SUBQ SCH (08:35)
[2021-06-14] MEDS: Metoprolol 100 MG TABLET PO SCH ×2 (08:35→19:52)
[2021-06-14] MEDS: Divalproex (12 HR) 250 MG TABLET PO SCH ×2 (08:35→19:52)
[2021-06-14] MEDS: ARIPiprazole 5 MG TABLET PO SCH (08:35)
[2021-06-14] MEDS: Cholecalciferol (D-3) 1,000 UNIT (25MCG) TABLET PO SCH (08:35)
[2021-06-14] MEDS: Fluticasone Propionate Nasal 50 MCG/SPRAY BOTTLE NS SCH ×2 (08:35→19:52)
[2021-06-14] MEDS: *HR* Pioglitazone 45 MG TABLET PO SCH (08:35)
[2021-06-14] MEDS: Furosemide 40 MG TABLET PO SCH (08:35)
[2021-06-14] MEDS: Latanoprost 2.5 ML BOTTLE BOTH EYES SCH (19:54)
[2021-06-15] MEDS: *HR* Enoxaparin 40 MG/0.4 ML SYRINGE SQ SCH (05:56)
[2021-06-15] MEDS: Metoprolol 100 MG TABLET PO SCH ×2 (08:20→20:10)
[2021-06-15] MEDS: Furosemide 40 MG TABLET PO SCH (08:20)
[2021-06-15] MEDS: Cholecalciferol (D-3) 1,000 UNIT (25MCG) TABLET PO SCH (08:20)
[2021-06-15] MEDS: ARIPiprazole 5 MG TABLET PO SCH (08:20)
[2021-06-15] MEDS: *HR* Pioglitazone 45 MG TABLET PO SCH (08:20)
[2021-06-15] MEDS: Fluticasone Propionate Nasal 50 MCG/SPRAY BOTTLE NS SCH ×2 (08:20→20:15)
[2021-06-15] MEDS: Divalproex (12 HR) 250 MG TABLET PO SCH ×2 (08:21→20:09)
[2021-06-15] MEDS: Insulin LISPRO 300 UNITS/3 ML VIAL SUBQ SCH ×4 (08:21→20:16)
[2021-06-15] MEDS: Insulin DETEMIR 100 UNIT/ML X5UNITS SUBQ SCH (08:22)
[2021-06-15 12:42] LABS: Hematocrit 41.2 % (35.3-44.9); Hemoglobin 12.9 g/dL (11.5-15.4); Mean Corpuscular HGB Conc 31.3 g/dL (31.6-35.5); Mean Corpuscular Hemoglobin 29.7 pg (28.0-33.3); Mean Corpuscular Volume 94.7 fL (83.0-100.0); Mean Platelet Volume 11.2 fL (9.4-12.4); Platelet Count 135 K/mcL (140-400); Red Blood Count 4.35 M/mcL (3.82-4.97); Red Cell Distribution Width 19.5 % (11.5-14.5); White Blood Count 4.2 K/mcL (4.3-11.1)
[2021-06-15 12:55] LABS: Calcium 9.2 mg/dL (8.6-10.3)
[2021-06-15] MEDS: Latanoprost 2.5 ML BOTTLE BOTH EYES SCH (20:14)
[2021-06-16] MEDS: *HR* Enoxaparin 40 MG/0.4 ML SYRINGE SQ SCH (06:15)
[2021-06-16] MEDS: Insulin LISPRO 300 UNITS/3 ML VIAL SUBQ SCH ×4 (07:27→20:47)
[2021-06-16] MEDS: Cholecalciferol (D-3) 1,000 UNIT (25MCG) TABLET PO SCH (08:20)
[2021-06-16] MEDS: *HR* Pioglitazone 45 MG TABLET PO SCH (08:21)
[2021-06-16] MEDS: Metoprolol 100 MG TABLET PO SCH ×2 (08:21→20:49)
[2021-06-16] MEDS: ARIPiprazole 5 MG TABLET PO SCH (08:21)
[2021-06-16] MEDS: Furosemide 40 MG TABLET PO SCH (08:21)
[2021-06-16] MEDS: Divalproex (12 HR) 250 MG TABLET PO SCH ×2 (08:21→20:50)
[2021-06-16] MEDS: Fluticasone Propionate Nasal 50 MCG/SPRAY BOTTLE NS SCH ×2 (08:22→20:50)
[2021-06-16] MEDS: Insulin DETEMIR 100 UNIT/ML X5UNITS SUBQ SCH (09:47)
[2021-06-16] MEDS: Latanoprost 2.5 ML BOTTLE BOTH EYES SCH (20:51)
[2021-06-17] MEDS: *HR* Enoxaparin 40 MG/0.4 ML SYRINGE SQ SCH (05:46)
[2021-06-17] MEDS: ARIPiprazole 5 MG TABLET PO SCH (08:42)
[2021-06-17] MEDS: *HR* Pioglitazone 45 MG TABLET PO SCH (08:42)
[2021-06-17] MEDS: Divalproex (12 HR) 250 MG TABLET PO SCH ×2 (08:42→21:51)
[2021-06-17] MEDS: Furosemide 40 MG TABLET PO SCH (08:42)
[2021-06-17] MEDS: Cholecalciferol (D-3) 1,000 UNIT (25MCG) TABLET PO SCH (08:42)
[2021-06-17] MEDS: Insulin DETEMIR 100 UNIT/ML X5UNITS SUBQ SCH (08:42)
[2021-06-17] MEDS: Metoprolol 100 MG TABLET PO SCH ×2 (08:42→21:51)
[2021-06-17] MEDS: Insulin LISPRO 300 UNITS/3 ML VIAL SUBQ SCH ×4 (08:43→21:43)
[2021-06-17] MEDS: Fluticasone Propionate Nasal 50 MCG/SPRAY BOTTLE NS SCH ×2 (08:44→21:49)
[2021-06-17] MEDS: Latanoprost 2.5 ML BOTTLE BOTH EYES SCH (21:50)
[2021-06-18] MEDS: *HR* Enoxaparin 40 MG/0.4 ML SYRINGE SQ SCH (06:47)
[2021-06-18] MEDS: Insulin LISPRO 300 UNITS/3 ML VIAL SUBQ SCH ×4 (08:53→20:33)
[2021-06-18] MEDS: Metoprolol 100 MG TABLET PO SCH ×2 (08:54→20:32)
[2021-06-18] MEDS: Cholecalciferol (D-3) 1,000 UNIT (25MCG) TABLET PO SCH (08:54)
[2021-06-18] MEDS: Divalproex (12 HR) 250 MG TABLET PO SCH ×2 (08:55→20:32)
[2021-06-18] MEDS: ARIPiprazole 5 MG TABLET PO SCH (08:55)
[2021-06-18] MEDS: Furosemide 40 MG TABLET PO SCH (08:55)
[2021-06-18] MEDS: *HR* Pioglitazone 45 MG TABLET PO SCH (08:55)
[2021-06-18] MEDS: Fluticasone Propionate Nasal 50 MCG/SPRAY BOTTLE NS SCH ×2 (08:55→20:32)
[2021-06-18] MEDS: Insulin DETEMIR 100 UNIT/ML X5UNITS SUBQ SCH (08:55)
[2021-06-18] MEDS: Latanoprost 2.5 ML BOTTLE BOTH EYES SCH (20:32)
[2021-06-19] MEDS: *HR* Enoxaparin 40 MG/0.4 ML SYRINGE SQ SCH (05:18)
[2021-06-19] MEDS: Insulin LISPRO 300 UNITS/3 ML VIAL SUBQ SCH ×4 (07:13→20:46)
[2021-06-19] MEDS: Metoprolol 100 MG TABLET PO SCH ×2 (07:41→20:52)
[2021-06-19] MEDS: *HR* Pioglitazone 45 MG TABLET PO SCH (07:41)
[2021-06-19] MEDS: Divalproex (12 HR) 250 MG TABLET PO SCH ×2 (07:41→20:52)
[2021-06-19] MEDS: Cholecalciferol (D-3) 1,000 UNIT (25MCG) TABLET PO SCH (07:42)
[2021-06-19] MEDS: ARIPiprazole 5 MG TABLET PO SCH (07:42)
[2021-06-19] MEDS: Furosemide 40 MG TABLET PO SCH (07:42)
[2021-06-19] MEDS: Fluticasone Propionate Nasal 50 MCG/SPRAY BOTTLE NS SCH ×2 (07:47→20:51)
[2021-06-19] MEDS: Insulin DETEMIR 100 UNIT/ML X5UNITS SUBQ SCH (09:48)
[2021-06-19] MEDS: Latanoprost 2.5 ML BOTTLE BOTH EYES SCH (20:53)
[2021-06-20] MEDS: *HR* Enoxaparin 40 MG/0.4 ML SYRINGE SQ SCH (05:28)
[2021-06-20] MEDS: Furosemide 40 MG TABLET PO SCH (07:44)
[2021-06-20] MEDS: Metoprolol 100 MG TABLET PO SCH ×2 (07:44→20:42)
[2021-06-20] MEDS: *HR* Pioglitazone 45 MG TABLET PO SCH (07:44)
[2021-06-20] MEDS: Cholecalciferol (D-3) 1,000 UNIT (25MCG) TABLET PO SCH (07:44)
[2021-06-20] MEDS: ARIPiprazole 5 MG TABLET PO SCH (07:44)
[2021-06-20] MEDS: Divalproex (12 HR) 250 MG TABLET PO SCH ×2 (07:44→20:42)
[2021-06-20] MEDS: Fluticasone Propionate Nasal 50 MCG/SPRAY BOTTLE NS SCH ×2 (07:45→20:42)
[2021-06-20] MEDS: Insulin LISPRO 300 UNITS/3 ML VIAL SUBQ SCH ×4 (07:45→20:42)
[2021-06-20] MEDS: Insulin DETEMIR 100 UNIT/ML X5UNITS SUBQ SCH (08:29)
[2021-06-20] MEDS: Latanoprost 2.5 ML BOTTLE BOTH EYES SCH (20:43)
[2021-06-21] MEDS: Insulin LISPRO 300 UNITS/3 ML VIAL SUBQ SCH ×4 (07:23→20:33)
[2021-06-21] MEDS: *HR* Enoxaparin 40 MG/0.4 ML SYRINGE SQ SCH (07:43)
[2021-06-21] MEDS: Furosemide 40 MG TABLET PO SCH (07:43)
[2021-06-21] MEDS: Cholecalciferol (D-3) 1,000 UNIT (25MCG) TABLET PO SCH (07:43)
[2021-06-21] MEDS: ARIPiprazole 5 MG TABLET PO SCH (07:43)
[2021-06-21] MEDS: Divalproex (12 HR) 250 MG TABLET PO SCH ×2 (07:43→20:30)
[2021-06-21] MEDS: *HR* Pioglitazone 45 MG TABLET PO SCH (07:43)
[2021-06-21] MEDS: Metoprolol 100 MG TABLET PO SCH ×2 (07:43→20:30)
[2021-06-21] MEDS: Fluticasone Propionate Nasal 50 MCG/SPRAY BOTTLE NS SCH ×2 (07:43→20:32)
[2021-06-21] MEDS: Insulin DETEMIR 100 UNIT/ML X5UNITS SUBQ SCH (08:29)
[2021-06-21] MEDS: Latanoprost 2.5 ML BOTTLE BOTH EYES SCH (20:31)
[2021-06-22] MEDS: *HR* Enoxaparin 40 MG/0.4 ML SYRINGE SQ SCH (06:05)
[2021-06-22] MEDS: Insulin LISPRO 300 UNITS/3 ML VIAL SUBQ SCH ×4 (07:24→20:42)
[2021-06-22] MEDS: Cholecalciferol (D-3) 1,000 UNIT (25MCG) TABLET PO SCH (07:55)
[2021-06-22] MEDS: Metoprolol 100 MG TABLET PO SCH ×2 (07:55→20:42)
[2021-06-22] MEDS: ARIPiprazole 5 MG TABLET PO SCH (07:55)
[2021-06-22] MEDS: *HR* Pioglitazone 45 MG TABLET PO SCH (07:55)
[2021-06-22] MEDS: Furosemide 40 MG TABLET PO SCH (07:55)
[2021-06-22] MEDS: Divalproex (12 HR) 250 MG TABLET PO SCH ×2 (07:56→20:42)
[2021-06-22] MEDS: Fluticasone Propionate Nasal 50 MCG/SPRAY BOTTLE NS SCH ×2 (07:56→20:42)
[2021-06-22] MEDS: Insulin DETEMIR 100 UNIT/ML X5UNITS SUBQ SCH (09:19)
[2021-06-22] MEDS: Latanoprost 2.5 ML BOTTLE BOTH EYES SCH (20:42)
[2021-06-23] MEDS: *HR* Enoxaparin 40 MG/0.4 ML SYRINGE SQ SCH (05:40)
[2021-06-23] MEDS: Insulin LISPRO 300 UNITS/3 ML VIAL SUBQ SCH ×4 (07:52→22:46)
[2021-06-23] MEDS: Divalproex (12 HR) 250 MG TABLET PO SCH ×2 (08:28→22:46)
[2021-06-23] MEDS: Cholecalciferol (D-3) 1,000 UNIT (25MCG) TABLET PO SCH (08:28)
[2021-06-23] MEDS: Metoprolol 100 MG TABLET PO SCH ×2 (08:28→22:47)
[2021-06-23] MEDS: ARIPiprazole 5 MG TABLET PO SCH (08:29)
[2021-06-23] MEDS: Furosemide 40 MG TABLET PO SCH (08:29)
[2021-06-23] MEDS: *HR* Pioglitazone 45 MG TABLET PO SCH (08:29)
[2021-06-23] MEDS: Fluticasone Propionate Nasal 50 MCG/SPRAY BOTTLE NS SCH ×2 (08:30→22:47)
[2021-06-23] MEDS: Insulin DETEMIR 100 UNIT/ML X5UNITS SUBQ SCH (08:39)
[2021-06-23] MEDS: Latanoprost 2.5 ML BOTTLE BOTH EYES SCH (22:46)
[2021-06-24 06:45] VITALS: BP 111/73; PULSE 85; RESP 17; TEMP 97.5; O2SAT 100
[2021-06-24] MEDS: *HR* Enoxaparin 40 MG/0.4 ML SYRINGE SQ SCH (06:54)
[2021-06-24] MEDS: Insulin LISPRO 300 UNITS/3 ML VIAL SUBQ SCH ×2 (07:58→11:29)
[2021-06-24] MEDS: ARIPiprazole 5 MG TABLET PO SCH (07:59)
[2021-06-24] MEDS: Divalproex (12 HR) 250 MG TABLET PO SCH (07:59)
[2021-06-24] MEDS: Furosemide 40 MG TABLET PO SCH (08:00)
[2021-06-24] MEDS: Fluticasone Propionate Nasal 50 MCG/SPRAY BOTTLE NS SCH (08:00)
[2021-06-24] MEDS: Cholecalciferol (D-3) 1,000 UNIT (25MCG) TABLET PO SCH (08:00)
[2021-06-24] MEDS: Metoprolol 100 MG TABLET PO SCH (08:00)
[2021-06-24] MEDS: *HR* Pioglitazone 45 MG TABLET PO SCH (08:00)
[2021-06-24] MEDS: Insulin DETEMIR 100 UNIT/ML X5UNITS SUBQ SCH (09:00)
== END 2021-06-24 14:54 | disposition home health service (06) | DRG 177 ==
LOC: INPPIK 05-28 16:44
PROVIDERS: ADMIT Family Medicine; ATTEND Family Medicine

== ENCOUNTER 2021-09-25 11:31 | Inpatient (IN) ==
[2021-09-25] MEDS ORDERED: Ipratropium/Albuterol Neb 3 ML IH ONE (11:42)
[2021-09-25] MEDS ORDERED: methylPREDNISolone 125 MG/2 ML VIAL IVP ONE (11:42)
[2021-09-25 12:20] LABS: Basophils % 0.4 %; Eosinophils % 0.4 %; Hematocrit 40.8 % (35.3-44.9); Hemoglobin 12.8 g/dL (11.5-15.4); Immature Granulocytes % 0.5 % (0-4); Lymphocytes # 1.8 K/mcL (0.6-4.6); Lymphocytes % 32.1 %; Mean Corpuscular HGB Conc 31.4 g/dL (31.6-35.5); Mean Corpuscular Hemoglobin 29.4 pg (28.0-33.3); Mean Corpuscular Volume 93.8 fL (83.0-100.0); Mean Platelet Volume 10.5 fL (9.4-12.4); Monocytes # 1.1 K/mcL (0.0-1.3); Monocytes % 19.5 %; Neutrophils # 2.6 K/mcL (1.6-8.9); Platelet Count 197 K/mcL (140-400); Red Blood Count 4.35 M/mcL (3.82-4.97); Red Cell Distribution Width 15.4 % (11.5-14.5); Segmented Neutrophils % 47.1 %; White Blood Count 5.5 K/mcL (4.3-11.1)
[2021-09-25 12:32] LABS: Platelet Estimate Normal (Normal); Reactive Lymphocytes Present (Not Present)
[2021-09-25 12:39] LABS: BUN/Creatinine Ratio 19 (6-26); Blood Urea Nitrogen 22 mg/dL (6-20); Calcium 8.5 mg/dL (8.6-10.3); Carbon Dioxide 32 mEq/L (23-29); Chloride 97 mEq/L (98-107); Glucose 135 mg/dL (70-105); Osmolality,Calculated 301 (280-300); Potassium 3.6 mEq/L (3.5-5.1); Sodium 143 mEq/L (136-145); eGFR For African Americans 60 (> 60); eGFR For Non-African Americans 49 (> 60)
[2021-09-25 12:40] LABS: Troponin I < 0.03 ng/mL (< 0.04)
[2021-09-25] MEDS ORDERED: Naloxone 0.4 MG/ML INJ IVP PRN (15:04)
[2021-09-25] MEDS ORDERED: Ondansetron 4 MG/2 ML VIAL IVP PRN (15:04)
[2021-09-25] MEDS ORDERED: MOM Conc 10 ML UD.LIQ PO PRN (15:04)
[2021-09-25] MEDS ORDERED: Mag Hydrox/Al Hydrox/Simeth 30 ML UDC PO PRN (15:04)
[2021-09-25] MEDS ORDERED: Melatonin 3 MG TABLET PO PRN (15:04)
[2021-09-25] MEDS ORDERED: *HR* Dextrose 50 % in Water (Syg) 50 ML SYRINGE IVP PRN (15:07)
[2021-09-25] MEDS ORDERED: Dextrose Gel 15 GM/37.5 ML TUBE PO PRN ×2 (15:07)
[2021-09-25] MEDS ORDERED: D5% in Water 1,000 ML IVC PRN (15:07)
[2021-09-25] MEDS: Ipratropium/Albuterol Neb 3 ML IH SCH ×2 (15:33→20:44)
[2021-09-25] MEDS: Nicotine 14 MG PATCH.TD24 TD SCH (16:24)
[2021-09-25] MEDS: Azithromycin 500 MG in 0.9 % Sodium Chloride 250 ML IVPB SCH (16:54)
[2021-09-25] MEDS: Insulin LISPRO 300 UNITS/3 ML VIAL SUBQ SCH (16:54)
[2021-09-25] MEDS: Furosemide 20 MG TABLET PO SCH (16:59)
[2021-09-25] MEDS: Divalproex (12 HR) 250 MG TABLET PO SCH (20:16)
[2021-09-25] MEDS: Fluticasone Propionate Nasal 50 MCG/SPRAY BOTTLE NS SCH (20:16)
[2021-09-25] MEDS: Latanoprost 2.5 ML BOTTLE BOTH EYES SCH (20:17)
[2021-09-25] MEDS: Budesonide/Formoterol 160/4.5 1 PUFF INH IH SCH (20:46)
[2021-09-26] MEDS: MethylPREDNISolone 40 MG/ML VIAL IVP SCH ×3 (00:05→16:52)
[2021-09-26] MEDS: Ipratropium/Albuterol Neb 3 ML IH SCH ×6 (00:10→20:27)
[2021-09-26] MEDS: Budesonide/Formoterol 160/4.5 1 PUFF INH IH SCH ×2 (08:35→20:27)
[2021-09-26] MEDS: Fluticasone Propionate Nasal 50 MCG/SPRAY BOTTLE NS SCH ×2 (08:43→21:29)
[2021-09-26] MEDS: Insulin LISPRO 300 UNITS/3 ML VIAL SUBQ SCH ×3 (08:43→16:56)
[2021-09-26] MEDS: ARIPiprazole 5 MG TABLET PO SCH (08:46)
[2021-09-26] MEDS: *HR* Pioglitazone 45 MG TABLET PO SCH (08:47)
[2021-09-26] MEDS: Divalproex (12 HR) 250 MG TABLET PO SCH ×2 (08:47→21:29)
[2021-09-26] MEDS: Furosemide 20 MG TABLET PO SCH (08:47)
[2021-09-26] MEDS: Nicotine 14 MG PATCH.TD24 TD SCH (08:48)
[2021-09-26] MEDS: Insulin DETEMIR 100 UNIT/ML X5UNITS SUBQ SCH (08:48)
[2021-09-26] MEDS: *HR* SitaGLIPtin 100 MG TABLET PO SCH (08:48)
[2021-09-26 09:36] LABS: Basophils % 0.2 %; Hematocrit 48.6 % (35.3-44.9); Hemoglobin 15.4 g/dL (11.5-15.4); Immature Granulocytes % 0.8 % (0-4); Lymphocytes # 1.3 K/mcL (0.6-4.6); Lymphocytes % 24.4 %; Mean Corpuscular HGB Conc 31.7 g/dL (31.6-35.5); Mean Corpuscular Hemoglobin 29.5 pg (28.0-33.3); Mean Corpuscular Volume 93.1 fL (83.0-100.0); Mean Platelet Volume 10.7 fL (9.4-12.4); Monocytes # 0.5 K/mcL (0.0-1.3); Neutrophils # 3.5 K/mcL (1.6-8.9); Platelet Count 210 K/mcL (140-400); Red Blood Count 5.22 M/mcL (3.82-4.97); Red Cell Distribution Width 14.7 % (11.5-14.5); Segmented Neutrophils % 65.6 %; White Blood Count 5.3 K/mcL (4.3-11.1)
[2021-09-26 09:52] LABS: BUN/Creatinine Ratio 21 (6-26); Blood Urea Nitrogen 24 mg/dL (6-20); Calcium 9.1 mg/dL (8.6-10.3); Carbon Dioxide 30 mEq/L (23-29); Chloride 100 mEq/L (98-107); Glucose 205 mg/dL (70-105); Osmolality,Calculated 304 (280-300); Potassium 3.9 mEq/L (3.5-5.1); Sodium 142 mEq/L (136-145); eGFR For African Americans > 60 (> 60); eGFR For Non-African Americans 50 (> 60)
[2021-09-26] MEDS ORDERED: Perflutren Lipid Microsphere 1.3 ML in 0.9 % Sodium Chloride 8.7 ML IVP PRN (16:36)
[2021-09-26] MEDS: Azithromycin 500 MG in 0.9 % Sodium Chloride 250 ML IVPB SCH (16:55)
[2021-09-26] MEDS: Furosemide 20 MG/2 ML VIAL IVP SCH (16:55)
[2021-09-26] MEDS: Latanoprost 2.5 ML BOTTLE BOTH EYES SCH (21:30)
[2021-09-27] MEDS: Ipratropium/Albuterol Neb 3 ML IH SCH ×6 (00:04→21:36)
[2021-09-27] MEDS: MethylPREDNISolone 40 MG/ML VIAL IVP SCH ×3 (00:06→15:23)
[2021-09-27] MEDS: *HR* Enoxaparin 40 MG/0.4 ML SYRINGE SQ SCH (06:07)
[2021-09-27 06:39] LABS: Hematocrit 45.1 % (35.3-44.9); Hemoglobin 13.8 g/dL (11.5-15.4); Mean Corpuscular HGB Conc 30.6 g/dL (31.6-35.5); Mean Corpuscular Hemoglobin 29.7 pg (28.0-33.3); Mean Corpuscular Volume 97.2 fL (83.0-100.0); Mean Platelet Volume 11.2 fL (9.4-12.4); Platelet Count 187 K/mcL (140-400); Red Blood Count 4.64 M/mcL (3.82-4.97); Red Cell Distribution Width 15.3 % (11.5-14.5); White Blood Count 6.1 K/mcL (4.3-11.1)
[2021-09-27 07:26] LABS: Magnesium 1.7 mg/dL (1.6-2.6); Potassium 4.3 mEq/L (3.5-5.1)
[2021-09-27] MEDS: *HR* Pioglitazone 45 MG TABLET PO SCH (08:24)
[2021-09-27] MEDS: *HR* SitaGLIPtin 100 MG TABLET PO SCH (08:24)
[2021-09-27] MEDS: Divalproex (12 HR) 250 MG TABLET PO SCH ×2 (08:24→19:38)
[2021-09-27] MEDS: Nicotine 14 MG PATCH.TD24 TD SCH (08:24)
[2021-09-27] MEDS: ARIPiprazole 5 MG TABLET PO SCH (08:24)
[2021-09-27] MEDS: Furosemide 20 MG/2 ML VIAL IVP SCH ×2 (08:25→15:25)
[2021-09-27] MEDS: Fluticasone Propionate Nasal 50 MCG/SPRAY BOTTLE NS SCH ×2 (08:25→19:38)
[2021-09-27] MEDS: Insulin LISPRO 300 UNITS/3 ML VIAL SUBQ SCH ×3 (08:26→17:30)
[2021-09-27] MEDS: Budesonide/Formoterol 160/4.5 1 PUFF INH IH SCH ×2 (09:52→21:36)
[2021-09-27 09:53] LABS: Adenovirus Not Detected (Not Detect); Bordetella Pertussis Not Detected (Not Detect); Chlamydophila pneumoniae Not Detected (Not Detect); Coronavirus 229E Not Detected (Not Detect); Coronavirus HKU1 Not Detected (Not Detect); Coronavirus NL63 Not Detected (Not Detect); Coronavirus OC43 Not Detected (Not Detect); Human Metapneumovirus DETECTED (Not Detect); Human Rhinovirus/Enterovirus Not Detected (Not Detect); Influenza A Subtype 2009 H1 Not Detected (Not Detect); Influenza B Not Detected (Not Detect); Mycoplasma pneumoniae Not Detected (Not Detect); Parainfluenza Virus 1 Not Detected (Not Detect); Parainfluenza Virus 2 Not Detected (Not Detect); Parainfluenza Virus 3 Not Detected (Not Detect); Parainfluenza Virus 4 Not Detected (Not Detect); Respiratory Syncytial Virus Not Detected (Not Detect); SARS-CoV-2 Not Detected (Not Detect)
[2021-09-27] MEDS: Insulin DETEMIR 100 UNIT/ML X5UNITS SUBQ SCH (10:02)
[2021-09-27] MEDS: Azithromycin 500 MG in 0.9 % Sodium Chloride 250 ML IVPB SCH (17:29)
[2021-09-27] MEDS: Latanoprost 2.5 ML BOTTLE BOTH EYES SCH (19:39)
[2021-09-28] MEDS: Ipratropium/Albuterol Neb 3 ML IH SCH ×3 (00:50→08:39)
[2021-09-28] MEDS: *HR* Enoxaparin 40 MG/0.4 ML SYRINGE SQ SCH (05:32)
[2021-09-28] MEDS ORDERED: MethylPREDNISolone 40 MG/ML VIAL IVP SCH (06:00)
[2021-09-28] MEDS: *HR* Pioglitazone 45 MG TABLET PO SCH (08:05)
[2021-09-28] MEDS: ARIPiprazole 5 MG TABLET PO SCH (08:06)
[2021-09-28] MEDS: Divalproex (12 HR) 250 MG TABLET PO SCH ×2 (08:06→20:33)
[2021-09-28] MEDS: Furosemide 20 MG/2 ML VIAL IVP SCH ×2 (08:07→16:27)
[2021-09-28] MEDS: Insulin LISPRO 300 UNITS/3 ML VIAL SUBQ SCH ×3 (08:07→16:28)
[2021-09-28] MEDS: *HR* SitaGLIPtin 100 MG TABLET PO SCH (08:07)
[2021-09-28] MEDS: Nicotine 14 MG PATCH.TD24 TD SCH (08:08)
[2021-09-28] MEDS: Fluticasone Propionate Nasal 50 MCG/SPRAY BOTTLE NS SCH ×2 (08:08→20:33)
[2021-09-28] MEDS ORDERED: Ipratropium/Albuterol Neb 3 ML IH PRN (08:46)
[2021-09-28] MEDS: Budesonide/Formoterol 160/4.5 1 PUFF INH IH SCH ×2 (09:41→20:30)
[2021-09-28] MEDS: Insulin DETEMIR 100 UNIT/ML X5UNITS SUBQ SCH ×2 (10:44→20:34)
[2021-09-28] MEDS: Azithromycin 500 MG in 0.9 % Sodium Chloride 250 ML IVPB SCH (16:29)
[2021-09-28] MEDS: Latanoprost 2.5 ML BOTTLE BOTH EYES SCH (20:34)
[2021-09-28] MEDS ORDERED: Insulin LISPRO 300 UNITS/3 ML VIAL SUBQ SCH (21:00)
[2021-09-29] MEDS: *HR* Enoxaparin 40 MG/0.4 ML SYRINGE SQ SCH (06:16)
[2021-09-29 06:45] VITALS: BP 126/81; PULSE 79; TEMP 97.6
[2021-09-29 07:28] LABS: Hematocrit 41.4 % (35.3-44.9); Hemoglobin 13.1 g/dL (11.5-15.4); Mean Corpuscular HGB Conc 31.6 g/dL (31.6-35.5); Mean Corpuscular Hemoglobin 29.7 pg (28.0-33.3); Mean Corpuscular Volume 93.9 fL (83.0-100.0); Mean Platelet Volume 10.8 fL (9.4-12.4); Platelet Count 205 K/mcL (140-400); Red Blood Count 4.41 M/mcL (3.82-4.97); Red Cell Distribution Width 15.1 % (11.5-14.5); White Blood Count 6.8 K/mcL (4.3-11.1)
[2021-09-29] MEDS: Insulin LISPRO 300 UNITS/3 ML VIAL SUBQ SCH ×3 (07:32→16:29)
[2021-09-29 07:48] LABS: BUN/Creatinine Ratio 37 (6-26); Blood Urea Nitrogen 40 mg/dL (6-20); Calcium 8.6 mg/dL (8.6-10.3); Carbon Dioxide 39 mEq/L (23-29); Chloride 98 mEq/L (98-107); Glucose 102 mg/dL (70-105); Magnesium 1.5 mg/dL (1.6-2.6); Osmolality,Calculated 306 (280-300); Potassium 3.8 mEq/L (3.5-5.1); Sodium 143 mEq/L (136-145); eGFR For African Americans > 60 (> 60); eGFR For Non-African Americans 54 (> 60)
[2021-09-29] MEDS: *HR* SitaGLIPtin 100 MG TABLET PO SCH (08:55)
[2021-09-29] MEDS: Nicotine 14 MG PATCH.TD24 TD SCH (08:56)
[2021-09-29] MEDS: *HR* Pioglitazone 45 MG TABLET PO SCH (08:56)
[2021-09-29] MEDS: Divalproex (12 HR) 250 MG TABLET PO SCH (08:56)
[2021-09-29] MEDS: ARIPiprazole 5 MG TABLET PO SCH (08:56)
[2021-09-29] MEDS: Furosemide 20 MG/2 ML VIAL IVP SCH ×2 (08:57→16:29)
[2021-09-29] MEDS: Insulin DETEMIR 100 UNIT/ML X5UNITS SUBQ SCH (08:57)
[2021-09-29] MEDS: Fluticasone Propionate Nasal 50 MCG/SPRAY BOTTLE NS SCH (08:58)
[2021-09-29] MEDS ORDERED: MethylPREDNISolone 40 MG/ML VIAL IVP SCH (09:00)
[2021-09-29] MEDS: Budesonide/Formoterol 160/4.5 1 PUFF INH IH SCH (09:35)
[2021-09-29 09:39] VITALS: RESP 18; O2SAT 94
[2021-09-29] MEDS: Azithromycin 500 MG in 0.9 % Sodium Chloride 250 ML IVPB SCH (15:36)
[2021-10-06] MEDS ORDERED: ARIPIPRAZOLE 400 MG IM SCH (09:00)
== END 2021-09-29 17:02 | disposition other institution (70) | DRG 189 ==
LOC: INPPIK 11:31 → EMEROOPIK 11:31 → SUATTDRO 13:21 → INPPIK 14:56
PROVIDERS: ADMIT Registered Nurse Emergency; ATTEND Family Medicine

== ENCOUNTER 2021-09-29 10:42 | Inpatient (IN) ==
[2021-09-29] MEDS ORDERED: Albuterol 2.5 MG/3 ML NEBULIZER IH PRN (16:22)
[2021-09-29] MEDS ORDERED: Dextrose Gel 15 GM/37.5 ML TUBE PO PRN ×2 (16:27)
[2021-09-29] MEDS ORDERED: *HR* Dextrose 50 % in Water (Syg) 50 ML SYRINGE IVP PRN (16:27)
[2021-09-29] MEDS ORDERED: D5% in Water 1,000 ML IVC PRN (16:27)
[2021-09-29] MEDS: Insulin LISPRO 300 UNITS/3 ML VIAL SUBQ SCH ×2 (18:31→22:09)
[2021-09-29] MEDS: Budesonide/Formoterol 160/4.5 1 PUFF INH IH SCH (20:53)
[2021-09-29] MEDS: Insulin DETEMIR 100 UNIT/ML X5UNITS SUBQ SCH (22:05)
[2021-09-29] MEDS: Cefdinir 300 MG CAPSULE PO SCH (22:05)
[2021-09-29] MEDS: Divalproex (12 HR) 250 MG TABLET PO SCH (22:05)
[2021-09-29] MEDS: Fluticasone Propionate Nasal 50 MCG/SPRAY BOTTLE NS SCH (22:05)
[2021-09-29] MEDS: Metoprolol 100 MG TABLET PO SCH (22:06)
[2021-09-29] MEDS: Furosemide 20 MG TABLET PO SCH (22:09)
[2021-09-30] MEDS: Insulin LISPRO 300 UNITS/3 ML VIAL SUBQ SCH ×4 (07:28→22:02)
[2021-09-30 07:42] LABS: Basophils # 0.1 K/mcL (0.0-0.2); Basophils % 0.8 %; Eosinophils % 0.1 %; Hematocrit 44.6 % (35.3-44.9); Immature Granulocytes % 2.3 % (0-4); Lymphocytes # 2.8 K/mcL (0.6-4.6); Lymphocytes % 40.1 %; Mean Corpuscular HGB Conc 31.4 g/dL (31.6-35.5); Mean Corpuscular Hemoglobin 29.4 pg (28.0-33.3); Mean Corpuscular Volume 93.5 fL (83.0-100.0); Mean Platelet Volume 10.9 fL (9.4-12.4); Monocytes # 0.8 K/mcL (0.0-1.3); Monocytes % 11.3 %; Neutrophils # 3.2 K/mcL (1.6-8.9); Platelet Count 168 K/mcL (140-400); Red Blood Count 4.77 M/mcL (3.82-4.97); Red Cell Distribution Width 14.9 % (11.5-14.5); Segmented Neutrophils % 45.4 %; White Blood Count 7.1 K/mcL (4.3-11.1)
[2021-09-30] MEDS: Nicotine 14 MG PATCH.TD24 TD SCH (08:16)
[2021-09-30] MEDS: Cholecalciferol (D-3) 1,000 UNIT (25MCG) TABLET PO SCH (08:16)
[2021-09-30] MEDS: Metoprolol 100 MG TABLET PO SCH ×2 (08:16→22:02)
[2021-09-30] MEDS: ARIPiprazole 5 MG TABLET PO SCH (08:16)
[2021-09-30] MEDS: *HR* SitaGLIPtin 100 MG TABLET PO SCH (08:16)
[2021-09-30] MEDS: *HR* Enoxaparin 40 MG/0.4 ML SYRINGE SQ SCH (08:16)
[2021-09-30] MEDS: Cefdinir 300 MG CAPSULE PO SCH ×2 (08:17→22:02)
[2021-09-30] MEDS: Furosemide 20 MG TABLET PO SCH ×2 (08:17→16:18)
[2021-09-30] MEDS: Divalproex (12 HR) 250 MG TABLET PO SCH ×2 (08:17→22:01)
[2021-09-30] MEDS: Fluticasone Propionate Nasal 50 MCG/SPRAY BOTTLE NS SCH ×2 (08:25→22:01)
[2021-09-30] MEDS: Insulin DETEMIR 100 UNIT/ML X5UNITS SUBQ SCH ×2 (08:55→22:02)
[2021-09-30 09:01] LABS: BUN/Creatinine Ratio 35 (6-26); Blood Urea Nitrogen 38 mg/dL (6-20); Calcium 8.6 mg/dL (8.6-10.3); Carbon Dioxide 34 mEq/L (23-29); Chloride 95 mEq/L (98-107); Glucose 117 mg/dL (70-105); Osmolality,Calculated 304 (280-300); Potassium 3.6 mEq/L (3.5-5.1); Sodium 142 mEq/L (136-145); eGFR For African Americans > 60 (> 60); eGFR For Non-African Americans 54 (> 60)
[2021-09-30] MEDS ORDERED: ARIPiprazole 400 MG SUSER.SYR IM SCH (10:00)
[2021-09-30] MEDS: Budesonide/Formoterol 160/4.5 1 PUFF INH IH SCH ×2 (11:02→21:23)
[2021-09-30] MEDS: predniSONE 20 MG TABLET PO SCH (22:04)
[2021-10-01] MEDS: Fluticasone Propionate Nasal 50 MCG/SPRAY BOTTLE NS SCH ×2 (08:23→21:11)
[2021-10-01] MEDS: Insulin LISPRO 300 UNITS/3 ML VIAL SUBQ SCH ×4 (08:24→21:14)
[2021-10-01] MEDS: Nicotine 14 MG PATCH.TD24 TD SCH (08:24)
[2021-10-01] MEDS: Cholecalciferol (D-3) 1,000 UNIT (25MCG) TABLET PO SCH (08:25)
[2021-10-01] MEDS: Metoprolol 100 MG TABLET PO SCH ×2 (08:25→21:13)
[2021-10-01] MEDS: *HR* SitaGLIPtin 100 MG TABLET PO SCH (08:25)
[2021-10-01] MEDS: ARIPiprazole 5 MG TABLET PO SCH (08:25)
[2021-10-01] MEDS: predniSONE 20 MG TABLET PO SCH (08:26)
[2021-10-01] MEDS: *HR* Enoxaparin 40 MG/0.4 ML SYRINGE SQ SCH (08:26)
[2021-10-01] MEDS: Cefdinir 300 MG CAPSULE PO SCH ×2 (08:26→21:12)
[2021-10-01] MEDS: Divalproex (12 HR) 250 MG TABLET PO SCH ×2 (08:26→21:13)
[2021-10-01] MEDS: Insulin DETEMIR 100 UNIT/ML X5UNITS SUBQ SCH ×2 (08:42→21:14)
[2021-10-01] MEDS: Budesonide/Formoterol 160/4.5 1 PUFF INH IH SCH ×2 (09:03→20:44)
[2021-10-01] MEDS: Nystatin SUSP 5 ML UD.LIQ PO SCH (21:15)
[2021-10-02] MEDS: Insulin LISPRO 300 UNITS/3 ML VIAL SUBQ SCH ×4 (07:39→20:09)
[2021-10-02] MEDS: Fluticasone Propionate Nasal 50 MCG/SPRAY BOTTLE NS SCH ×2 (07:42→20:08)
[2021-10-02] MEDS: Nicotine 14 MG PATCH.TD24 TD SCH (07:42)
[2021-10-02] MEDS: *HR* Enoxaparin 40 MG/0.4 ML SYRINGE SQ SCH (07:42)
[2021-10-02] MEDS: predniSONE 20 MG TABLET PO SCH (07:43)
[2021-10-02] MEDS: Cholecalciferol (D-3) 1,000 UNIT (25MCG) TABLET PO SCH (07:43)
[2021-10-02] MEDS: Metoprolol 100 MG TABLET PO SCH ×2 (07:43→20:08)
[2021-10-02] MEDS: Cefdinir 300 MG CAPSULE PO SCH ×2 (07:44→20:07)
[2021-10-02] MEDS: ARIPiprazole 5 MG TABLET PO SCH (07:44)
[2021-10-02] MEDS: *HR* SitaGLIPtin 100 MG TABLET PO SCH (07:44)
[2021-10-02] MEDS: Divalproex (12 HR) 250 MG TABLET PO SCH ×2 (07:44→20:07)
[2021-10-02] MEDS: Budesonide/Formoterol 160/4.5 1 PUFF INH IH SCH ×2 (08:50→20:33)
[2021-10-02] MEDS: Insulin DETEMIR 100 UNIT/ML X5UNITS SUBQ SCH ×2 (09:29→20:09)
[2021-10-02] MEDS: Nystatin POWDER 30 GM BOTTLE TP SCH ×2 (11:37→20:11)
[2021-10-02] MEDS: Nystatin SUSP 5 ML UD.LIQ PO SCH (19:28)
[2021-10-03] MEDS: Budesonide/Formoterol 160/4.5 1 PUFF INH IH SCH ×2 (09:31→22:57)
[2021-10-03] MEDS: Nicotine 14 MG PATCH.TD24 TD SCH (10:07)
[2021-10-03] MEDS: ARIPiprazole 5 MG TABLET PO SCH (10:07)
[2021-10-03] MEDS: Divalproex (12 HR) 250 MG TABLET PO SCH ×2 (10:07→20:29)
[2021-10-03] MEDS: Metoprolol 100 MG TABLET PO SCH ×2 (10:08→20:28)
[2021-10-03] MEDS: *HR* SitaGLIPtin 100 MG TABLET PO SCH (10:08)
[2021-10-03] MEDS: Cholecalciferol (D-3) 1,000 UNIT (25MCG) TABLET PO SCH (10:08)
[2021-10-03] MEDS: Nystatin POWDER 30 GM BOTTLE TP SCH ×2 (10:11→21:59)
[2021-10-03] MEDS: Fluticasone Propionate Nasal 50 MCG/SPRAY BOTTLE NS SCH ×2 (10:12→20:29)
[2021-10-03] MEDS: predniSONE 20 MG TABLET PO SCH (10:14)
[2021-10-03] MEDS: Insulin DETEMIR 100 UNIT/ML X5UNITS SUBQ SCH ×2 (10:30→21:59)
[2021-10-03] MEDS: *HR* Enoxaparin 40 MG/0.4 ML SYRINGE SQ SCH (13:52)
[2021-10-03] MEDS: Insulin LISPRO 300 UNITS/3 ML VIAL SUBQ SCH ×4 (13:54→22:30)
[2021-10-04] MEDS: Budesonide/Formoterol 160/4.5 1 PUFF INH IH SCH ×2 (09:19→21:50)
[2021-10-04] MEDS: Fluticasone Propionate Nasal 50 MCG/SPRAY BOTTLE NS SCH ×2 (10:03→20:46)
[2021-10-04] MEDS: Nicotine 14 MG PATCH.TD24 TD SCH (10:04)
[2021-10-04] MEDS: Insulin LISPRO 300 UNITS/3 ML VIAL SUBQ SCH ×4 (10:04→20:47)
[2021-10-04] MEDS: *HR* Enoxaparin 40 MG/0.4 ML SYRINGE SQ SCH (10:05)
[2021-10-04] MEDS: Cholecalciferol (D-3) 1,000 UNIT (25MCG) TABLET PO SCH (10:06)
[2021-10-04] MEDS: Metoprolol 100 MG TABLET PO SCH ×2 (10:06→21:14)
[2021-10-04] MEDS: ARIPiprazole 5 MG TABLET PO SCH (10:06)
[2021-10-04] MEDS: Divalproex (12 HR) 250 MG TABLET PO SCH ×2 (10:07→20:46)
[2021-10-04] MEDS: *HR* SitaGLIPtin 100 MG TABLET PO SCH (10:07)
[2021-10-04] MEDS: Nystatin POWDER 30 GM BOTTLE TP SCH ×2 (10:08→21:14)
[2021-10-04] MEDS: Insulin DETEMIR 100 UNIT/ML X5UNITS SUBQ SCH ×2 (10:08→20:47)
[2021-10-04] MEDS: predniSONE 20 MG TABLET PO SCH (10:12)
[2021-10-05] MEDS: *HR* Enoxaparin 40 MG/0.4 ML SYRINGE SQ SCH (06:09)
[2021-10-05] MEDS: ARIPiprazole 5 MG TABLET PO SCH (08:19)
[2021-10-05] MEDS: *HR* SitaGLIPtin 100 MG TABLET PO SCH (08:19)
[2021-10-05] MEDS: Cholecalciferol (D-3) 1,000 UNIT (25MCG) TABLET PO SCH (08:19)
[2021-10-05] MEDS: predniSONE 20 MG TABLET PO SCH (08:20)
[2021-10-05] MEDS: Fluticasone Propionate Nasal 50 MCG/SPRAY BOTTLE NS SCH ×2 (08:20→21:05)
[2021-10-05] MEDS: Nicotine 14 MG PATCH.TD24 TD SCH (08:20)
[2021-10-05] MEDS: Metoprolol 100 MG TABLET PO SCH ×2 (08:20→21:06)
[2021-10-05] MEDS: Divalproex (12 HR) 250 MG TABLET PO SCH ×2 (08:20→21:05)
[2021-10-05] MEDS: Insulin LISPRO 300 UNITS/3 ML VIAL SUBQ SCH ×4 (08:21→21:07)
[2021-10-05] MEDS: Nystatin POWDER 30 GM BOTTLE TP SCH ×2 (08:21→21:08)
[2021-10-05] MEDS: Insulin DETEMIR 100 UNIT/ML X5UNITS SUBQ SCH ×2 (08:26→21:06)
[2021-10-05] MEDS: Budesonide/Formoterol 160/4.5 1 PUFF INH IH SCH ×2 (11:03→21:22)
[2021-10-06] MEDS: *HR* Enoxaparin 40 MG/0.4 ML SYRINGE SQ SCH (05:20)
[2021-10-06 07:15] LABS: Basophils % 0.3 %; Eosinophils # 0.1 K/mcL (0.0-0.6); Eosinophils % 0.7 %; Immature Granulocytes % 1.2 % (0-4); Lymphocytes # 2.8 K/mcL (0.6-4.6); Lymphocytes % 38.2 %; Mean Corpuscular HGB Conc 32.6 g/dL (31.6-35.5); Mean Corpuscular Hemoglobin 29.9 pg (28.0-33.3); Mean Corpuscular Volume 91.7 fL (83.0-100.0); Monocytes # 0.6 K/mcL (0.0-1.3); Monocytes % 7.8 %; Neutrophils # 3.8 K/mcL (1.6-8.9); Platelet Count 211 K/mcL (140-400); Red Blood Count 4.69 M/mcL (3.82-4.97); Red Cell Distribution Width 14.6 % (11.5-14.5); Segmented Neutrophils % 51.8 %; White Blood Count 7.3 K/mcL (4.3-11.1)
[2021-10-06] MEDS: Insulin LISPRO 300 UNITS/3 ML VIAL SUBQ SCH ×4 (07:18→20:10)
[2021-10-06] MEDS: Budesonide/Formoterol 160/4.5 1 PUFF INH IH SCH ×2 (08:45→20:04)
[2021-10-06] MEDS: Nicotine 14 MG PATCH.TD24 TD SCH (08:48)
[2021-10-06] MEDS: ARIPiprazole 5 MG TABLET PO SCH (08:48)
[2021-10-06] MEDS: predniSONE 20 MG TABLET PO SCH (08:49)
[2021-10-06] MEDS: Divalproex (12 HR) 250 MG TABLET PO SCH ×2 (08:49→20:10)
[2021-10-06] MEDS: *HR* SitaGLIPtin 100 MG TABLET PO SCH (08:49)
[2021-10-06] MEDS: Metoprolol 100 MG TABLET PO SCH ×2 (08:49→20:09)
[2021-10-06] MEDS: Cholecalciferol (D-3) 1,000 UNIT (25MCG) TABLET PO SCH (08:50)
[2021-10-06] MEDS: Nystatin POWDER 30 GM BOTTLE TP SCH ×2 (08:50→20:17)
[2021-10-06] MEDS: Insulin DETEMIR 100 UNIT/ML X5UNITS SUBQ SCH ×2 (08:50→20:16)
[2021-10-06] MEDS: Fluticasone Propionate Nasal 50 MCG/SPRAY BOTTLE NS SCH ×2 (08:52→20:09)
[2021-10-06 09:20] LABS: BUN/Creatinine Ratio 29 (6-26); Blood Urea Nitrogen 26 mg/dL (6-20); Calcium 9.3 mg/dL (8.6-10.3); Carbon Dioxide 33 mEq/L (23-29); Chloride 102 mEq/L (98-107); Glucose 82 mg/dL (70-105); Osmolality,Calculated 300 (280-300); Potassium 3.5 mEq/L (3.5-5.1); Sodium 143 mEq/L (136-145); eGFR For African Americans > 60 (> 60); eGFR For Non-African Americans > 60 (> 60)
[2021-10-06 19:34] VITALS: PULSE 91
[2021-10-07 07:14] VITALS: BP 151/93; TEMP 97.8
[2021-10-07] MEDS: Budesonide/Formoterol 160/4.5 1 PUFF INH IH SCH (08:08)
[2021-10-07 08:10] VITALS: RESP 18; O2SAT 96
[2021-10-07] MEDS: *HR* SitaGLIPtin 100 MG TABLET PO SCH (08:18)
[2021-10-07] MEDS: Cholecalciferol (D-3) 1,000 UNIT (25MCG) TABLET PO SCH (08:19)
[2021-10-07] MEDS: ARIPiprazole 5 MG TABLET PO SCH (08:19)
[2021-10-07] MEDS: Divalproex (12 HR) 250 MG TABLET PO SCH (08:19)
[2021-10-07] MEDS: Metoprolol 100 MG TABLET PO SCH (08:19)
[2021-10-07] MEDS: Fluticasone Propionate Nasal 50 MCG/SPRAY BOTTLE NS SCH (08:20)
[2021-10-07] MEDS: Insulin LISPRO 300 UNITS/3 ML VIAL SUBQ SCH (08:20)
[2021-10-07] MEDS: Nystatin POWDER 30 GM BOTTLE TP SCH (08:21)
[2021-10-07] MEDS: Insulin DETEMIR 100 UNIT/ML X5UNITS SUBQ SCH (08:25)
[2021-10-07] MEDS: *HR* Enoxaparin 40 MG/0.4 ML SYRINGE SQ SCH (08:31)
[2021-10-07] MEDS: Nicotine 14 MG PATCH.TD24 TD SCH (08:31)
[2021-10-07] MEDS ORDERED: predniSONE 10 MG TABLET PO SCH (09:00)
== END 2021-10-07 09:15 | disposition home health service (06) | DRG 190 ==
LOC: INPPIK 17:21
PROVIDERS: ADMIT Family Medicine; ATTEND Family Medicine